=== PATIENT | female | born 1950 | race African-American/Black ===

== ENCOUNTER 2020-07-05 15:47 | Inpatient (IN) | payer OTHER ==
[~2020-07-05] VITALS: Ht 160 cm; Wt 47.7 kg
[2020-07-05 15:48] VITALS: BP 178/73
[2020-07-05 16:13] LABS: ABSOLUTE NEUTROPHILS 11.3 thou/uL (1.4-8.2); BASOPHILS 0.8 % (0.0-2.0); HEMATOCRIT 29.2 % (37.0-47.0); HEMOGLOBIN 9.2 gm/dL (12.0-15.0); LYMPHOCYTES 6.9 % (24.0-44.0); MCH 25.2 pg (26.0-34.0); MCHC 31.7 g/dL (28.0-37.0); MCV 79.5 fL (80.0-100.0); MONOCYTES 7.8 % (1.0-8.0); PLATELET COUNT 602 thou/uL (150-400); POLYS 84.5 % (36.0-66.0); RBC 3.67 mil/uL (4.20-5.00); RDW 14.8 % (10.5-14.5); WBC 13.4 thou/uL (4.0-11.0)
[2020-07-05 16:26] LABS: CALCIUM 9.2 mg/dL (8.5-10.1); CREATININE 0.9 mg/dL (0.6-1.0); INR 1.2; POTASSIUM 3.6 mmol/L (3.5-5.1); PROTIME 12.2 Seconds (9.3-11.4)
[2020-07-05 16:32] LABS: ALBUMIN 2.2 g/dL (3.4-5.0); DIRECT BILIRUBIN 0.1 mg/dL (<0.1-0.2); TOTAL BILIRUBIN 0.5 mg/dL (0.2-1.0); TOTAL PROTEIN 8.4 g/dL (6.4-8.2)
[2020-07-05] MEDS ORDERED: PLAVIX 75 MG TA75 MG PO (16:32)
[2020-07-05] MEDS ORDERED: ASA81BEC PO (16:32)
[2020-07-05] MEDS ORDERED: LOVENOX40 MG/0.4 SUBQ (16:32)
[2020-07-05] MEDS ORDERED: NEURONTIN100 MG PO (16:33)
[2020-07-05] MEDS ORDERED: LASIX 40 MG TAB40 MG PO (16:33)
--- NOTE | 2020-07-05 16:37 | NUR ---
SPOKE WITH NURSE AT [facility], SHE STATES SHE HAS BEEN AT THEIR FACILITY FOR APPROX 9 DAYS. WAS AT [facility] PRIOR. THE NURSE STATES PATIENT'S COGNITIVE FUNCTION IS TYPICAL FOR PATIENT. WHEN ASKED ABOUT EXTENT OF FOOT NECROSIS, THE NURSE STATES THEIR NURSE PRACTIONER HAS "BEEN KEEPING AN EYE ON IT" SINCE SHE ARRIVED. ANOTHER PROVIDER CAME TO SEE PATIENT TODAY AND THEN SENT HER TO ED
--- NOTE | 2020-07-05 18:12 | NUR ---
DR JAMES AT BEDSIDE EXAMINING PATIENT
[2020-07-06 00:14] VITALS: BP 153/68
--- NOTE | 2020-07-06 00:51 | NUR ---
ATTEMPTED TO CALL REPORT. THIS NURSE WAS TOLD THE NURSE THAT WOULD BE TAKING REPORT WILL CALL ME BACK
[2020-07-06 02:03] VITALS: BP 128/57
--- NOTE | 2020-07-06 04:40 | NUR ---
Arrived from ER around 0130. Unable to sign consent due to cognitive deficit. Able to state her name and that she is at the hospital. Admission information obtained from medical records . Able to reposition self though needs assistance at times due to pain on her legs. Tolerating room air well. Placed on enhanced precaution , afebrile. RETAIL GREETER stated ortho,wound and IR consults called already in the ER. Incontinent of bladder and had a smear bm. Unable to obtain urine sample ordered in ER. Bed alarm on for safety.
[2020-07-06 06:03] LABS: HEMATOCRIT 27.7 % (37.0-47.0); HEMOGLOBIN 8.6 gm/dL (12.0-15.0); MCH 25.1 pg (26.0-34.0); MCHC 31.2 g/dL (28.0-37.0); MCV 80.5 fL (80.0-100.0); RBC 3.44 mil/uL (4.20-5.00); RDW 14.6 % (10.5-14.5); WBC 12.1 thou/uL (4.0-11.0)
[2020-07-06 06:06] LABS: CALCIUM 8.8 mg/dL (8.5-10.1); CREATININE 0.8 mg/dL (0.6-1.0)
[2020-07-06 09:56] VITALS: BP 142/71
--- NOTE | 2020-07-06 11:37 | NUR ---
FAXED CLINICAL UPDATES AND COVID RESULTS TO [place]. WILL CALL TO CONFIRM THEY RECEIVED. P [phone]; FAX [phone]
[2020-07-06 13:32] VITALS: BP 165/72
[2020-07-06] MEDS ORDERED: FLONASE 0.05%50 MCG NASAL (14:35)
--- NOTE | 2020-07-06 14:50 | NUR ---
INITIAL ASSESSMENT: Received consult. DAMARIS reviewed chart and spoke with nursing and attending physician. 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 Pt placed in Enhanced Isolation due to positive COVID test. Pt is afebrile and not requiring O2. Pt is on IV abx. IR and ortho consulted. Pt to have right AKA tomorrow. Nursing has spoken with pt's sister/DPOA, Jolie, for consent for surgery. DPOA ppwk placed on pt's chart. DAMARIS has left two message for Matilda at [facility] to provide update. tool and production planner to fax clinical info to [facility] for review. DAMARIS is following to assist as needed with discharge planning.
--- NOTE | 2020-07-06 16:03 | NUR ---
CARE ASSUMED AT 0700, ALERT AND ORIENTED X1, DISORIENTED TO PLACE, SITUATION AND TIME. DENIES ANY NAUSEA AND VOMITTING. RIGHT LOWER LEG IS GANGRENE. DR. SHARLENE CRAWFORD ROUNDING AND STATED PT WILL NEEDED SURGERY SOON. CALLED PT DPOA, STEPH. FACETIME SET UP FOR PT AND HER SISTER. 1400 PT SISTER STEPH, BROUGHT DOWN PT DPOA PAPER WORK, CONSENT FOR SURGERY TOMORROW RECIEVED, SECOND RN, ESSIE WITNESS FOR CONSENT. PT KEPT NPO PER DR. LEE. WILL CONTINUE TO MONITOR.
[2020-07-06 16:07] VITALS: BP 173/70
[2020-07-06 19:50] VITALS: BP 156/64
[2020-07-07] VITALS (8 sets, daily range): BP systolic 137–185; BP diastolic 62–87
--- NOTE | 2020-07-07 05:02 | NUR ---
Care assumed 1900, Pt confused, oriented to self only. Vitals stable. Pt kept NPO for possible amputation of necrotic right leg. Pt is incontient, able to turn self in bed. Will continue With POC.
[2020-07-07 05:56] LABS: HEMATOCRIT 26.9 % (37.0-47.0); HEMOGLOBIN 8.3 gm/dL (12.0-15.0); MCH 25.8 pg (26.0-34.0); MCV 83.2 fL (80.0-100.0); RBC 3.23 mil/uL (4.20-5.00); RDW 14.9 % (10.5-14.5); WBC 17.5 thou/uL (4.0-11.0)
[2020-07-07 06:11] LABS: CALCIUM 8.8 mg/dL (8.5-10.1); CREATININE 0.7 mg/dL (0.6-1.0); POTASSIUM 3.9 mmol/L (3.5-5.1)
--- NOTE | 2020-07-07 10:21 | NUR ---
Received awake on bed. Pt confused, alert to self only; re-oriented from time to time. On MS, not on telemetry; no complains and signs of chest pain, crushing sensation. On room air. Vital signs stable. On nothing per orem, pt informed and aware; no nausea, no vomiting and no abdominal pain noted. Incontinent of bowel and bladder, checked frequently and changed as needed. With SL at R FA- intact and flushing well; on IV antibiotics. Falls bundle in place. Mouth care done. Pt scheduled for surgery today; verified with pre-op nurse Allie- pt scheduled at 1400 today- care team informed as well. Assisted in ADLs. Pt repositioned every 2 hours. No complains of pain made during assessment. Rt foot ischemic, no dressing in place. To continue monitoring patient.
--- NOTE | 2020-07-07 13:25 | NUR ---
DAMARIS reviewed chart and spoke with nursing and attending physician. Pt remains in Enhanced Isolation due to COVID. Pt has been febrile and is not requiring O2. Pt is on IV abx. Pt to have right BKA/AKA today. Surgery planned for this afternoon. DAMARIS spoke with ARY Kenney at [facility] to provide update. No weekend discharge planned. DAMARIS spoke with pt's sister/DPOA, Jolie Almendarez, via phone. Introduced role of SW. Lengthy discussion regarding discharge plan. Pt has been at [facility] for about two weeks for skilled rehab. Pt was at [facility] prior to going to [facility]. Pt had been living at home with family. Pt has caregivers that come in 8 hours/day and pt's niece provides additional care. Pt's sister states that family is going to discuss discharge plans. Pt's family has a virtual meeting with [facility] on Friday. SW provided alternate SNF options if needed. Pt's family has been able to Face Time with pt. DAMARIS is following to assist as needed with discharge planning.
[2020-07-08 00:01] VITALS: BP 153/80
--- NOTE | 2020-07-08 01:23 | NUR ---
ASSUMED CARE OF PATIENT AT 1900. PATIENT IN BED, RESTLESS AT TIMES. DENIES PAIN. CHRISTOPHER BANDAGE ON RIGHT LEG REMAINS C/D/I. NO S/S OF DISTRESS.
[2020-07-08 04:56] VITALS: BP 156/92
[2020-07-08 06:21] LABS: HEMOGLOBIN 7.5 gm/dL (12.0-15.0)
[2020-07-08 08:02] VITALS: BP 156/70
[2020-07-08 08:33] LABS: HEMATOCRIT 26.1 % (37.0-47.0); HEMOGLOBIN 8.1 gm/dL (12.0-15.0); MCH 24.9 pg (26.0-34.0); MCV 80.5 fL (80.0-100.0); RBC 3.24 mil/uL (4.20-5.00); WBC 13.6 thou/uL (4.0-11.0)
[2020-07-08 16:24] VITALS: BP 139/67
--- NOTE | 2020-07-08 18:38 | NUR ---
RN ASSUMED PT'S CARE AT 0700AM, PT KNOWS HER NAME AND DAY, BUT PT IS CONFUSED AT TIME, PT IS CONTINUING IV ABX, AND COVID ISOLATION, PT 'S VS ARE STABLE , PT REMOVED HER AKA SURGICAL DRESSING , RN APPLY NEW DRESSING, SURGICAL INCISION IS CDI ,PT 'S PAIN CAN CONTROL BY MEDICATION AND REPOSITION .RN HAS CALLED DR TO REPORT PT REFUSED EAT AND DRINKING , AND REPORT ABNORMAL US FOR LLE, NEW ORDER RECEIVED, PT HAS FACE TIME WITH HER FAMILY.
[2020-07-08 19:32] VITALS: BP 140/58
--- NOTE | 2020-07-08 21:50 | NUR ---
PT RESTING IN BED. IVF INTACT. PT HAS R AKA DRESSING DRY AND INTACT. PT DOES HAVE DISCOMFORT WITH REPOSITIONING IF SURGICAL SITE IS TOUCHED. PT REQUESTED SIPS OF WATER AND PROVIDED. COMPLIANT WITH HS MED, VS AND ASSESSMENT. BED ALARM ON.
[2020-07-09 02:56] VITALS: BP 151/66
[2020-07-09 05:19] LABS: HEMATOCRIT 23.9 % (37.0-47.0); HEMOGLOBIN 7.6 gm/dL (12.0-15.0); MCH 25.2 pg (26.0-34.0); MCHC 31.7 g/dL (28.0-37.0); MCV 79.5 fL (80.0-100.0); RBC 3.01 mil/uL (4.20-5.00); RDW 14.7 % (10.5-14.5); WBC 10.9 thou/uL (4.0-11.0)
[2020-07-09 05:35] LABS: CALCIUM 7.8 mg/dL (8.5-10.1); CREATININE 0.6 mg/dL (0.6-1.0); POTASSIUM 3.3 mmol/L (3.5-5.1)
[2020-07-09 08:43] VITALS: BP 149/81
[2020-07-09 16:06] VITALS: BP 144/82
--- NOTE | 2020-07-09 17:17 | NUR ---
RN ASSUMED PT'S CARE AT 0700AM, PT IS A&OX2 ( PERSON AND PLACE), PT IS CONFUSED AT TIME, RN HAS REPORTED DR ABOUT PT REFUSED TO EAT AND DRINK, PT IS CONTINUING D51/2 NS @ 80ML/HR, PT'S R AKA SURGICAL DRESSING IS CDI, PT DENIES SOB AND PAIN AT THIS TIME.
[2020-07-09 20:57] VITALS: BP 153/43
--- NOTE | 2020-07-09 23:55 | NUR ---
PT RESTLESS IN BED, FREQUENTLY REPOSITIONING, REMAING IN POSITION, PREFERS R SIDE. IVF INTACT. R AKA DRESSING AND L ANKLE DRESSING INTACT. REMAINS INCONTINENT, COMPLIANT WITH MEDS. BED ALARM ON.
[2020-07-10 03:24] VITALS: BP 155/75
[2020-07-10 06:38] LABS: HEMATOCRIT 27.2 % (37.0-47.0); HEMOGLOBIN 8.6 gm/dL (12.0-15.0); MCH 25.2 pg (26.0-34.0); MCHC 31.5 g/dL (28.0-37.0); MCV 80.1 fL (80.0-100.0); RBC 3.4 mil/uL (4.20-5.00); RDW 15.5 % (10.5-14.5); WBC 9.8 thou/uL (4.0-11.0)
[2020-07-10 06:57] LABS: CALCIUM 8.4 mg/dL (8.5-10.1); CREATININE 0.7 mg/dL (0.6-1.0); POTASSIUM 4.3 mmol/L (3.5-5.1)
[2020-07-10 07:47] VITALS: BP 173/71
--- NOTE | 2020-07-10 10:23 | NUR ---
Nutrition: Pt with little po intake x 5 days. Starting ensure TID as nsg reports pt drinking better than eating. Suggest consider change IVFs to Clinimix PPN to assist with nutrition til po improves.
--- NOTE | 2020-07-10 11:52 | NUR ---
DAMARIS reviewed chart and spoke with nursing and attending physician. Pt remains in Enhanced Isolation due to COVID. Pt had right AKA on Friday. PT/OT ordered today to evaluate pt. Discharge to SNF is anticipated for tomorrow. DAMARIS spoke with pt's sister/DPOA, Jolie, via phone to discuss discharge plan. Pt's family does not want pt to return to [facility]. Pt's sister requests referral to be sent to [facility]. Pt's sister states she has a virtual meeting with [facility] staff this afternoon and she will notify the facility of pt not returning. DAMARIS faxed referral to [facility]. Notified [facility] post acute liaison of new referral. Awaiting input from [facility]. DAMARIS is following to assist as needed with discharge planning.
--- NOTE | 2020-07-10 11:56 | O ---
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 PROCEDURE: Right below-knee amputation. SURGEON: Ciro Naranjo MD. ROOF FIXER: Karine Pete PA-C. INDICATIONS FOR ROOF FIXER: Throughout the case, extensive retraction and manipulation of the leg was required. This was afforded to me by my assistant statistician. ANESTHESIA: General. TOURNIQUET TIME: Approximately 20 minutes. COMPLICATIONS: None. SPECIMENS: Right lower extremity was sent for pathology. ESTIMATED BLOOD LOSS: 25 mL. CONDITION UPON LEAVING THE OPERATING ROOM: Stable. INDICATIONS FOR PROCEDURE: The patient is a 69-year-old female, who has had progressive dry gangrene of her right lower extremity that started out in her foot and progressed up to her midcalf. She had desiccation of the entire skin from the calf down to her foot including the foot. She had a vascular study showing to have no flow of arterial blood below her knee. After discussion with her DPOA and recommendation for above-knee amputation, DPOA was in agreement and we decided to proceed. DESCRIPTION OF PROCEDURE: Risks, benefits, alternatives, complications were discussed in detail with her DPOA, including but not limited to risk of [facility] [address] [place] [address] OPERATIVE REPORT Name: FRANCISCO MONZON Room #: 356-P [facility] IN M.R.#: [id number] Admission: 07/05/20 Attend Phys: Marcio Brown MD Discharge: Date of : 54 Report #: [id number] continued wound problems and need for higher level amputation. Informed consent was obtained from the DPOA. The right lower extremity was appropriately marked. IV Ancef was given for preoperative antibiotics. She was brought to the operating room and placed in the supine position on the operating room table. General anesthesia was induced without complication. Tourniquet was placed on the right thigh. Right lower extremity was prepped and draped in normal sterile fashion. Timeout was performed properly identifying the patient and procedure as well as the instrumentation. All in the operating room were in agreement. A fishmouth-type incision was then drawn on the skin at the distal third of the femur with the same surgical marking pen and a #10 blade was used to incise the skin. Bovie cautery was used to dissect through the musculature anteriorly down to the bone. A Cerrato elevator was used to clean the periosteum off the bone and a transverse cut was made in the femur. This was bevelled anteriorly. Dissection was continued with Bovie cautery through the posterior musculature and the amputation was completed. The sciatic nerve was identified, pulled tight and cut sharply with #10 blade and allowed to retract to prevent neuroma formation. The femoral artery was identified, dissected out, was quite atherosclerotic; however, this was tied off with 0 silk. The vein was tied off with a 0 silk also. The tourniquet was deflated and the wound was thoroughly irrigated with normal saline. Hemostasis was obtained with Bovie cautery. The posterior fascia was sewn to the anterior fascia with 0 Vicryl, skin was closed with 2-0 Vicryl, skin staple and a soft dressing was applied. The patient tolerated this procedure well and went to recovery room under care of anesthesia postoperatively. <ELECTRONICALLY SIGNED> By: Ciro Naranjo MD 07/10/20 1156 [id number] 1520 Ciro Naranjo MD /nt
[2020-07-10 15:36] VITALS: BP 156/87
--- NOTE | 2020-07-10 16:43 | NUR ---
PT ALERT AND ORIENTED IMES THREE WITH BLUNTED, SAD, FLAT AFFECT. BP ELEVATED SCHEDULED BP MEDICATIONS GIVEN. OTHER VSS. IVF INFUSING PER ORDER. PT DENIES PAIN. PT TOLERATES MEDS, BUT EATS VERY SMALL PORTIONS OF MEALS. DRESSING TO LEFT HEEL CHANGED. RIGHT SURGEY DRESSING C/D/I. WILL CONTINUE TO MONITOR.
[2020-07-10 19:45] VITALS: BP 152/58
[2020-07-11 03:24] VITALS: BP 156/65
--- NOTE | 2020-07-11 06:06 | NUR ---
PT ALERT AND ORIENTED X3. TURNS SIDE TO SIDE IN BED AND GETS IV OCCUDED FREQUENTLY. REPOSITIONED SEVERAL TIMES. I OFFERED HER PAIN PILLS SEVERAL TIMES TONIGHT BUT SHE REFUSED. REPOSITIONED FOR COMFORT. IVF INFUSING WITHOUT DIFFICULTY. BED DOWN. CALL LIGHT IN REACH. BED ALARM IS ON. ZGARD APPLIED TO BUTTOCKS. SHE IS INCONTINENT OF URINE IN LG AMTS.
[2020-07-11 07:35] VITALS: BP 143/66
[2020-07-11] MEDS ORDERED: ACETAMINOPHEN325 M1 PO (13:42)
[2020-07-11] MEDS ORDERED: BENICAR40 MG PO (13:42)
--- NOTE | 2020-07-11 14:25 | NUR ---
DISCHARGE NOTE: DAMARIS reviewed chart and spoke with nursing and attending physician. Pt remains in Enhanced Isolation due to COVID. Pt is medically stable for discharge to [facility] today. DAMARIS faxed finalized discharge orders/summary to the facility and confirmed info was received. DAMARIS arranged ambulance transportation for 1630 via [facility]. DAMARIS spoke with pt's sister/DPOA, Jolie, via phone to provide update. Jolie is aware and agreeable with discharge plan. Chart copy requested. Nursing to call report prior to discharge. DAMARIS updated [facility] post-acute liaison of transportation time. [id number] form faxed to facility. No additional SW needs identified at this time, but is available to assist should needs arise.
--- NOTE | 2020-07-11 19:47 | NUR ---
RN ASSUMED PT'S CARE AT 0700AM, PT IS A&OX2 ( PERSON AND PLACE), PT CAN FOLLOW COMMANDS, PT IS ON COVID ISOLATION, PT'S VS ARE STABLE, PT DENIES SON AND PAIN, PT'S R AKA SURICAL WOUNG DDRESSING HAS CHANGED, RN HAS TAKING PT'S WOUND PICTURES . RN RECEIVED OR TO DC PT TO SNF, RN HAS GIVING REPORTED, PT STILL NEEDS TO ENCOURAGE TO EAT AND DRINK. 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
--- NOTE | 2020-07-24 15:01 | HC ---
[facility] [address] CONSULTATION Name: FRANCISCO MONZON Room #: 356-P [facility] IN M.R.#: [id number] Admission: 07/05/20 Attend Phys: Marcio Brown MD Discharge: 07/11/20 Date of : 54 Report #: [id number] THIS REPORT FOR: cc: Mp Omer MD, Srinath MD Althoff,Anjel Stockton MD ~ DATE OF SERVICE: 07/06/2020 CHIEF COMPLAINT: Ischemic lower extremity. HISTORY OF PRESENT ILLNESS: This is a 69-year-old female patient who comes from [facility]. She has presented with pain and discoloration of her right lower extremity, and was admitted through the Emergency Department, was felt to have significant tissue necrosis that has encompassed the entirety of the lower leg and foot. Apparently, the discoloration started several weeks ago, the patient is not able to provide much information about herself unfortunately. PAST MEDICAL HISTORY: Positive for history of an undefined mental illness, history of alcohol abuse, hypertension, and history of tobacco use. FAMILY HISTORY: Unknown. SOCIAL HISTORY: Once again positive for alcohol and tobacco use, amount and duration are unknown. MEDICATIONS: Include Lovenox, Plavix, enteric coated aspirin, Lasix, and Neurontin. ALLERGIES: No known drug allergies. REVIEW OF SYSTEMS: Not able to be obtained due to the patient's mental status. PHYSICAL EXAMINATION: VITAL SIGNS: At this time include temperature 36.7, pulse 87, respiratory rate 16, blood pressure 173/70. GENERAL: This is a chronically ill-appearing female patient who appears to be in mild discomfort. She is disoriented and does not interact very well. HEENT: Head is normocephalic. NECK: Supple. LUNGS: Clear. HEART: Regular rhythm. ABDOMEN: Soft. EXTREMITIES: Right lower extremity demonstrates what appears to be progressive dry gangrene involving the right lower leg and encompassing the entirety of the foot. It is tender to palpation. There is no odor and there is really no [address] [address] CONSULTATION Name: FRANCISCO MONZON Room #: 356-[facility] IN M.R.#: [id number] Admission: 07/05/20 Attend Phys: Marcio Brown MD Discharge: 07/11/20 Date of : 54 Report #: [id number] drainage to speak of at this time. NEUROLOGIC: The patient opens her eyes. She does not interact, appears to move symmetrically. LABORATORY DATA: Sodium 135, potassium 3.0, chloride 101, CO2 22, BUN 18, creatinine 0.8, glucose of 95. Albumin 2.2. INR 1.2. White blood cell count 12.1 with a hemoglobin of 8.6. CLINICAL IMPRESSION: 1. Right lower extremity gangrene. 2. Severe peripheral arterial disease. 3. Undefined mental illness. 4. History of alcohol abuse. 5. History of tobacco use. RECOMMENDATIONS: At this point in time, the right lower extremity does not appear to be salvageable. I have discussed this case with the interventional radiologist, who does not feel that it would be necessary to intervene on the right leg due to the fact that she will require amputation. I agree with orthopedic consultation. I think we should seriously consider an above-knee amputation versus below-knee amputation based both on vascularity as well as it is unclear that she will ever be ambulatory and would be at risk for flexion contracture at the knee. We recommend PRAFO boots at this time, dry gauze dressings. I appreciate being asked to see her in consultation. <ELECTRONICALLY SIGNED> By: Anjel Koch MD 07/24/20 1501 0930 0947 Anjel Koch MD /nt
--- NOTE | 2020-08-01 10:11 | PATH ---
[facility] [address] [address] PATHOLOGY RPT PROCEDURE Name: FRANCISCO MONZON Room #: 356-P [facility] IN M.R.#: [id number] Admission: 07/05/20 Date of : 54 Discharge: 07/11/20 Report #: [id number] Path Case #: [id number] [facility] Accession Number: [id number] . 01 Material submitted: . leg - ABOVE KNEE AMPUTATION . 01 Clinician provided ICD-10: 173.89 . 01 Clinical history: . GANGRENE RIGHT FOOT COVID POSITIVE . 02 Diagnosis: Leg, right, above knee amputation: - Gangrenous necrosis and mummification of the foot. - Popliteal, anterior tibial and posterior tibial vessels showing complete luminal occlusion by thrombi and calcific atherosclerosis with no patent lumen. - Skin and soft tissue margin viable and unremarkable. - Bone margin grossly viable. (IUV/db; 07/14/2020) LBQ 07/14/2020 1556 Local . 02 Electronically signed: . Geri Cobian MD, Pathologist NPI- [id number] . 01 Gross description: . The specimen is received fresh in a red biohazard bag, labeled "Francisco Monzon, right above knee amputation". The specimen is placed in formalin for approximately 55 hours prior to sectioning. Received is a right omtuh-aep-kgfk amputation measuring 21.4 cm from heel to toe, 34.3 cm from heel to skin margin, and 40.2 cm from heel to femoral bone margin. The bone margin is blunt in appearance, consistent with transection, and appears grossly unremarkable. The skin and soft tissue margins appear grossly viable. The distal one third of the lower leg and entire foot are brown-black and mummified in appearance, with a moderate amount of skin slippage. All five toes are present. The remainder of the skin is light romero and grossly unremarkable. Sectioning through the popliteal artery reveals a moderate amount of calcification at the margin. Approximately 2 cm distal to the popliteal margin, there is minimal calcification identified. Sectioning through the anterior and posterior tibial vasculatures reveal patent lumens. The specimen is submitted representatively as follows: . [address] [address] PATHOLOGY RPT PROCEDURE Name: FRANCISCO MONZON Room #: 356-P DIS IN M.R.#: [id number] Admission: 07/05/20 Date of : 54 Discharge: 07/11/20 Report #: [id number] Path Case #: [id number] A1 skin and soft tissue margin A2 service liaison representative sections of skin to show mummification and grossly unremarkable areas A3 popliteal vasculatures, to include margin A4 anterior and posterior tibial vasculatures. . Gross photographs are taken. (CAA; 07/12/2020) QAC/QAC 07/12/2020 1710 Local . 02 Pathologist provided ICD-10: I96, I70.201 . 02 CPT . 001297 Specimen Comment: A duplicate report has been generated due to demographic updates. Performed at: [address], [place] [id number] MD Daniel Dumas MD Phone: [phone] Performed at: [address] [id number] MD Geri Cobian MD Phone: [phone]
[2020-09-13] MEDS ORDERED: ASA81BEC PO (15:12)
[2020-09-13] MEDS ORDERED: PROBIOTIC1 EAC1 PO (15:12)
[2020-09-13] MEDS ORDERED: NORCO5 PO (15:12)
[2020-09-13] MEDS ORDERED: PREVACID30 MG PO (15:12)
[2020-09-13] MEDS ORDERED: PLAVIX 75 MG TA75 MG PO (15:12)
[2020-09-13] MEDS ORDERED: HYDROCODON-ACE1 EAC7 PO (15:12)
[2020-09-13] MEDS ORDERED: NEURONTIN100 MG PO (15:12)
[2020-09-13] MEDS ORDERED: LOSARTAN POTAS100 MG PO (15:12)
[2020-09-13] MEDS ORDERED: FLONASE 0.05%50 MCG NASAL (15:12)
== END 2020-07-11 18:01 | DRG 853 ==
LOC: ER 15:47 → 3W 17:55 → EROBS 17:55 → 3W 07-06 01:16
PROVIDERS: Nurse Practitioner; Orthopaedic Surgery; ADMIT Hospitalist; ATTEND Hospitalist
PROC: 0Y6H0Z3 Detachment at Right Lower Leg, Low, Open Approach (ICD-10-PCS; principal; 2020-07-07)
DX: A41.89 Other specified sepsis (principal); U07.1 COVID-19; E43 Unspecified severe protein-calorie malnutrition; E87.1 Hypo-osmolality and hyponatremia; D62 Acute posthemorrhagic anemia; Z68.1 Body mass index [BMI] 19.9 or less, adult; I73.9 Peripheral vascular disease, unspecified; I99.8 Other disorder of circulatory system; F10.11 Alcohol abuse, in remission; I10 Essential (primary) hypertension; I77.1 Stricture of artery; D72.829 Elevated white blood cell count, unspecified; E87.6 Hypokalemia; L89.626 Pressure-induced deep tissue damage of left heel; G93.0 Cerebral cysts; Z79.899 Other long term (current) drug therapy; Z79.01 Long term (current) use of anticoagulants; Z79.82 Long term (current) use of aspirin
CPT/HCPCS: 10080; 50101; 50386; 51412; 53000; 53078; 56524; 56528; 57091; 57179; 62110; 62900

== ENCOUNTER 2020-07-17 12:04 | Inpatient (IN) | payer OTHER ==
[~2020-07-17] VITALS: Ht 160 cm; Wt 44.0 kg
--- NOTE | ~2020-07-17 | O ---
[facility] [place] [address] OPERATIVE REPORT Name: FRANCISCO MONZON Room #: 205-P ADM IN M.R.#: [id number] Admission: 07/17/20 Attend Phys: Joselito Townsend MD Discharge: Date of : 54 Report #: [id number] THIS REPORT FOR: cc: Adonay Perdomo James D. DO Kneidel, Matthew T. MD ~ DATE OF SERVICE: 07/24/2020 PREOPERATIVE DIAGNOSIS: Left leg gangrene. POSTOPERATIVE DIAGNOSIS: Left leg gangrene. PROCEDURE: Left kwwnx-uvs-xlnf amputation. SURGEON: Dr. Carlos Alberto Perez. HOUSE ADMIN: None. ANESTHESIA: General. ESTIMATED BLOOD LOSS: 50 mL. DRAINS: One Hemovac drain was placed. COMPLICATIONS: There were no complications. DESCRIPTION OF PROCEDURE: The patient brought to the operating room where she was placed under general anesthesia. Once under adequate general anesthesia, she was transferred to the operative table. The patient's left lower extremity was then prepped and draped in sterile manner. A fishmouth-type incision was made about the distal femur. This was taken directly down to the bone localizing and clamping the vessels with hemostats. The femoral vessels were then incised and the femur was then exposed with a Cerrato elevator. The femur was then transected with an oscillating saw. The femoral nerve was transected proximally in the leg with a 15 blade. The femur was bevelled anteriorly with an oscillating saw as well. Once the amputation was complete, the femoral vessels were suture ligated with 0 silk suture. The wound was irrigated copiously once again and closed with #1 Vicryl in the deep fascia, 2-0 Vicryl in subcutaneous tissues and esteban were used for the skin. The wounds were dressed with Xeroform, 4 x 4s, and sterile soft compressive dressing was placed. [facility] [address] [place] [address] OPERATIVE REPORT Name: FRANCISCO MONZON Room #: 205-P [facility] IN ..#: [id number] Admission: 07/17/20 Attend Phys: Joselito Townsend MD Discharge: Date of : 54 Report #: [id number] There were no complications from the procedure. The patient tolerated the procedure well and was taken to recovery room without incident. By: [id number] Carlos Alberto Perez MD /savita
[~2020-07-17 12:04] MED LIST: ACETAMINOPHEN325 M1 PO; ASA81BEC PO; BENICAR40 MG PO; FLONASE 0.05%50 MCG NASAL; LASIX 40 MG TAB40 MG PO; LOVENOX40 MG/0.4 SUBQ; NEURONTIN100 MG PO; PLAVIX 75 MG TA75 MG PO
[2020-07-17 12:05] VITALS: BP 141/54
[2020-07-17 12:53] LABS: ABSOLUTE NEUTROPHILS 11.8 thou/uL (1.4-8.2); BASOPHILS 0.9 % (0.0-2.0); HEMATOCRIT 22.9 % (37.0-47.0); HEMOGLOBIN 7.2 gm/dL (12.0-15.0); LYMPHOCYTES 9.3 % (24.0-44.0); MCH 24.4 pg (26.0-34.0); MCHC 31.4 g/dL (28.0-37.0); MCV 77.6 fL (80.0-100.0); MONOCYTES 6.5 % (1.0-8.0); PLATELET COUNT 619 thou/uL (150-400); POLYS 83.3 % (36.0-66.0); RBC 2.96 mil/uL (4.20-5.00); WBC 14.2 thou/uL (4.0-11.0)
[2020-07-17 13:02] LABS: ALBUMIN 2.1 g/dL (3.4-5.0); CALCIUM 8.2 mg/dL (8.5-10.1); CREATININE 1.2 mg/dL (0.6-1.0); DIRECT BILIRUBIN 0.1 mg/dL (<0.1-0.2); TOTAL BILIRUBIN 0.4 mg/dL (0.2-1.0)
[2020-07-17 13:05] LABS: POTASSIUM 2.9 mmol/L (3.5-5.1)
[2020-07-17 13:08] LABS: URINE BILIRUBIN NEGATIVE (Negative); URINE BLOOD 2+ (Negative); URINE COLOR YELLOW; URINE GLUCOSE-RANDOM* NEGATIVE (Negative); URINE KETONES NEGATIVE (Negative); URINE PROTEIN (DIPSTICK) NEGATIVE (Negative); URINE SPECIFIC GRAVITY 1.015 (1.005-1.035); URINE UROBILINOGEN 0.2 E.U./dl (0.2-1.0)
[2020-07-17 13:09] LABS: URINE CLARITY SL HAZY; URINE LEUKOCYTES-REFLEX 1+ (Negative); URINE NITRITE-REFLEX POSITIVE (Negative)
[2020-07-17 13:24] LABS: SQUAMOUS 4-10 Moderate /LPF (0-3); URINE RBC 3-10 Few /HPF (0-2); URINE WBC-REFLEX 6-15 Few /HPF (0-5)
[2020-07-17 13:25] LABS: BACTERIA-REFLEX >30 Many /HPF (None Seen); CASTS None Seen /LPF (None Seen); CRYSTALS None Seen /LPF (None Seen)
[2020-07-17 14:37] LABS: % SATURATION 11 % (20-39); IRON 13 ug/dL (50-170); TIBC 116 ug/dL (250-450)
[2020-07-17 15:51] VITALS: BP 143/57
[2020-07-17 16:30] VITALS: BP 140/61
[2020-07-17 20:01] VITALS: BP 126/65
[2020-07-18 04:28] VITALS: BP 180/81
[2020-07-18 05:36] LABS: HEMATOCRIT 20.2 % (37.0-47.0); HEMOGLOBIN 6.5 gm/dL (12.0-15.0); WBC 11.8 thou/uL (4.0-11.0)
[2020-07-18 05:38] LABS: MCH 25.2 pg (26.0-34.0); MCHC 32.4 g/dL (28.0-37.0); RBC 2.59 mil/uL (4.20-5.00); RDW 15.1 % (10.5-14.5)
[2020-07-18 05:47] LABS: CALCIUM 7.8 mg/dL (8.5-10.1); CREATININE 0.9 mg/dL (0.6-1.0)
[2020-07-18 05:56] LABS: POTASSIUM 2.5 mmol/L (3.5-5.1)
[2020-07-18 08:00] VITALS: BP 171/69
[2020-07-18 11:12] VITALS: BP 160/96; BP 175/69; BP 183/76; BP 185/82; BP 192/77
[2020-07-18 16:21] LABS: HEMATOCRIT 28.9 % (37.0-47.0)
[2020-07-18 16:22] LABS: HEMOGLOBIN 9.2 gm/dL (12.0-15.0)
[2020-07-18 16:32] LABS: ALBUMIN 1.9 g/dL (3.4-5.0); CALCIUM 7.8 mg/dL (8.5-10.1); CREATININE 0.9 mg/dL (0.6-1.0); TOTAL BILIRUBIN 0.6 mg/dL (0.2-1.0); TOTAL PROTEIN 6.9 g/dL (6.4-8.2)
[2020-07-18 16:35] LABS: POTASSIUM 3.7 mmol/L (3.5-5.1)
[2020-07-18 19:51] VITALS: BP 190/72
[2020-07-19 04:36] VITALS: BP 149/79
[2020-07-19 05:13] LABS: HEMATOCRIT 26.2 % (37.0-47.0); HEMOGLOBIN 8.6 gm/dL (12.0-15.0); MCH 25.9 pg (26.0-34.0); MCHC 32.6 g/dL (28.0-37.0); MCV 79.3 fL (80.0-100.0); RBC 3.31 mil/uL (4.20-5.00); RDW 15.5 % (10.5-14.5); WBC 16.3 thou/uL (4.0-11.0)
[2020-07-19 05:46] LABS: CALCIUM 8.2 mg/dL (8.5-10.1); CREATININE 0.9 mg/dL (0.6-1.0); MAGNESIUM 1.6 mg/dL (1.8-2.4)
[2020-07-19 07:20] VITALS: BP 143/85
[2020-07-19 09:35] VITALS: BP 131/7
[2020-07-19 19:17] VITALS: BP 178/94
[2020-07-20 05:32] LABS: HEMATOCRIT 26.7 % (37.0-47.0); HEMOGLOBIN 8.5 gm/dL (12.0-15.0); MCH 25.6 pg (26.0-34.0); MCV 79.8 fL (80.0-100.0); RBC 3.34 mil/uL (4.20-5.00); RDW 16.1 % (10.5-14.5)
[2020-07-20 06:10] LABS: CALCIUM 8.2 mg/dL (8.5-10.1); CREATININE 0.8 mg/dL (0.6-1.0); MAGNESIUM 1.4 mg/dL (1.8-2.4)
[2020-07-20 08:21] VITALS: BP 151/81
[2020-07-20 11:37] VITALS: BP 167/84
[2020-07-20 15:42] VITALS: BP 141/91
[2020-07-20 19:42] VITALS: BP 131/55
[2020-07-21 05:33] LABS: HEMATOCRIT 25.3 % (37.0-47.0); MCH 25.6 pg (26.0-34.0); MCHC 31.7 g/dL (28.0-37.0); MCV 80.8 fL (80.0-100.0); RBC 3.13 mil/uL (4.20-5.00); RDW 15.8 % (10.5-14.5); WBC 17.8 thou/uL (4.0-11.0)
[2020-07-21 05:47] LABS: CALCIUM 7.8 mg/dL (8.5-10.1); CREATININE 0.9 mg/dL (0.6-1.0); MAGNESIUM 2.1 mg/dL (1.8-2.4); POTASSIUM 3.7 mmol/L (3.5-5.1)
[2020-07-21 08:07] VITALS: BP 146/80
[2020-07-21 19:13] VITALS: BP 129/43
[2020-07-21 21:14] LABS: MAGNESIUM 1.8 mg/dL (1.8-2.4); POTASSIUM 4.1 mmol/L (3.5-5.1)
[2020-07-22 03:58] VITALS: BP 108/70
[2020-07-22 04:16] LABS: HEMATOCRIT 25.4 % (37.0-47.0); HEMOGLOBIN 7.9 gm/dL (12.0-15.0); MCH 25.2 pg (26.0-34.0); MCHC 31.1 g/dL (28.0-37.0); RBC 3.14 mil/uL (4.20-5.00); RDW 16.3 % (10.5-14.5); WBC 16.9 thou/uL (4.0-11.0)
[2020-07-22 04:24] LABS: CREATININE 0.9 mg/dL (0.6-1.0); MAGNESIUM 1.9 mg/dL (1.8-2.4); POTASSIUM 3.9 mmol/L (3.5-5.1)
[2020-07-22 15:22] VITALS: BP 132/51
[2020-07-22 20:08] VITALS: BP 159/65
[2020-07-23 04:16] VITALS: BP 163/66
[2020-07-23 07:40] VITALS: BP 152/67
[2020-07-23 10:56] LABS: HEMATOCRIT 25.4 % (37.0-47.0); HEMOGLOBIN 7.7 gm/dL (12.0-15.0); MCH 25.3 pg (26.0-34.0); MCHC 30.5 g/dL (28.0-37.0); MCV 82.9 fL (80.0-100.0); RBC 3.06 mil/uL (4.20-5.00); WBC 16.4 thou/uL (4.0-11.0)
[2020-07-23 11:06] LABS: CALCIUM 7.6 mg/dL (8.5-10.1); CREATININE 0.9 mg/dL (0.6-1.0); MAGNESIUM 1.7 mg/dL (1.8-2.4); POTASSIUM 3.4 mmol/L (3.5-5.1)
[2020-07-23 11:20] VITALS: BP 158/67
--- NOTE | 2020-07-23 13:33 | HC ---
[facility] [place] [place] [address] CONSULTATION Name: FRANCISCO MONZON Room #: 205-P ADM IN M.R.#: [id number] Admission: 07/17/20 Attend Phys: Joselito Townsend MD Discharge: Date of : 54 Report #: [id number] THIS REPORT FOR: cc: Adonay Perdomo James D. DO Geha, Daniel J. MD ~ DATE OF SERVICE: 07/22/2020 INFECTIOUS DISEASE CONSULTATION REASON FOR CONSULTATION: I was asked to evaluate concerning left foot gangrene. HISTORY OF PRESENT ILLNESS: The patient is a 70-year-old with history of hypertension, peripheral vascular disease, who was hospitalized 2 weeks ago for gangrene of her right lower extremity and required a right AKA. This has remained stable. She was at halfway facility and returns with generalized weakness and failure to thrive. She does have a feeding PEG tube in place. She has an indwelling Mendez catheter. She has adequate IV access. She has been anorexic and generally weak. Mental status has been poor. She underwent an angiogram and stenting procedure regarding her left lower extremity yesterday. She has significant amount of pain in her left foot and has remained curled in a position. REVIEW OF SYSTEMS: Denies any cough, sputum, nausea, vomiting or diarrhea. Other 14-point review is negative other than what has been described above. ALLERGIES: None known. MEDICATIONS: As noted on her AUG, which were reviewed, now including ceftriaxone. PAST MEDICAL HISTORY: Arthritis, hypertension, peripheral vascular disease, alcohol use, tobacco use, right AKA, cerebral cyst, atrial fibrillation, UTI. FAMILY HISTORY: Negative for tuberculosis. SOCIAL HISTORY: Smoker of cigarettes, no ongoing alcohol use. PHYSICAL EXAMINATION: VITAL SIGNS: Afebrile and hemodynamically stable. GENERAL: The patient was in the position. She would respond and was conversant, although very weak. SKIN: With sacral pressure wound. Unstageable. EXTREMITIES: Her right AKA incision with esteban in place well approximated with mild tenderness. Her left lower extremity was exquisitely tender, [facility] [address] [place] [address] CONSULTATION Name: FRANCISCO MONZON Room #: 205-P ADM IN M.R.#: [id number] Admission: 07/17/20 Attend Phys: Joselito Townsend MD Discharge: Date of : 54 Report #: [id number] erythematous. She had diffuse ischemic change throughout the foot and ankle up to the mid-calf region. There was some blistering and ecchymosis throughout her foot. Toes were cold. No palpable pulses in the foot. EYES: Without scleral icterus. MOUTH: Without mucositis. NECK: Supple. LUNGS: Clear. HEART: Regular, without murmur, gallop or rub. ABDOMEN: Soft, nontender, no hepatosplenomegaly or mass. Her PEG site was without erythema or drainage. MUSCULOSKELETAL: No CVA tenderness or spine tenderness. She was able to move all of her extremities, although was in the position. NEUROLOGIC: Cranial nerves intact. Mood was sedate, but conversant. Laboratory reviewed. Microbiology reviewed. Angiogram reviewed. CT of the pelvis reviewed. IMPRESSION: 1. A 70-year-old with significant peripheral vascular disease and left lower extremity ischemia with gangrene of her foot, status post angiogram and stenting procedure yesterday. 2. Malnutrition. 3. Sacral decubitus, unstageable. 4. Encephalopathy. 5. Recent COVID-19 infection, anemia, recent right ocpyg-irv-yqqy amputation. RECOMMENDATIONS: We will continue IV antibiotic therapy. We would have Orthopedic consultation for consideration of left lower extremity amputation. Hopefully, could do a mefgv-vgf-qgbn amputation given her recent arterial stenting procedures. Continue nutritional support and pain management. Offloading the sacrum as much as possible and follow serial laboratory. <ELECTRONICALLY SIGNED> By: Shiva Sahni MD 07/23/20 1333 1619 1855 Shiva Sahni MD /nt
[2020-07-23 15:23] VITALS: BP 163/81
[2020-07-23 20:00] VITALS: BP 131/56
[2020-07-24 04:10] VITALS: BP 148/55
--- NOTE | 2020-07-24 11:44 | HC ---
[facility] [place] [address] CONSULTATION Name: FRANCISCO MONZON Room #: 205-P ADM IN M.R.#: [id number] Admission: 07/17/20 Attend Phys: Joselito Townsend MD Discharge: Date of : 54 Report #: [id number] THIS REPORT FOR: cc: Adonay Perdomo,Sreekanth Ely MD ~ DATE OF SERVICE: 07/18/2020 WOUND CARE CONSULTATION PERSONAL PHYSICIAN: Adonay Perdomo. CHIEF COMPLAINT: Left lower extremity wounds and peripheral arterial disease. HISTORY OF PRESENT ILLNESS: This is a 69-year-old black female who we have cared for in the past for previous right lower extremity ulcer, which subsequently ended up in the right zqngk-rnp-ogki amputation on 07/07/2020. The patient was now admitted for poor oral intake and for possible PEG tube placement. Upon admission, the patient was noted to have significant deep tissue injury to her left heel and foot. The foot was cool to evaluation without palpable pulses. This has been a definite change from her evaluation approximately 2 weeks ago when she was in the hospital. The patient herself is essentially nonverbal, but does moan when we evaluate her left foot. The patient's right stump still has esteban intact. The patient was also noted to have an unstageable ulceration in her sacrococcygeal region on admission. Nursing staff deny any other associated ulcerations or wounds. PAST MEDICAL HISTORY: Significant for peripheral arterial disease, hypertension, tobacco use, alcohol use. Recent right pztdd-hzq-asof amputation. CURRENT MEDICATIONS: Multiple, I reviewed his medication list. DRUG ALLERGIES: None. SOCIAL HISTORY: The patient currently resides in a long-term care facility. FAMILY HISTORY AND REVIEW OF SYSTEMS: Unobtainable because of the patient's altered mental status. PHYSICAL EXAMINATION: VITAL SIGNS: Temperature 36.4, pulse 93, respirations 17, BP 151/81. GENERAL: This is an awake, but not necessarily alert black female who appears to be in at least moderate distress secondary to pain. HEENT: Normocephalic, atraumatic. Mucous membranes are dry. Pupils are round. Sclerae white. [facility] [address] [place] [address] CONSULTATION Name: FRANCISCO MONZON Room #: 205-P [facility] IN M.R.#: [id number] Admission: 07/17/20 Attend Phys: Joselito Townsend MD Discharge: Date of : 54 Report #: [id number] NECK: Without JVD. LUNGS: Clear. HEART: Regular. ABDOMEN: Soft, nontender. EXTREMITIES: On the sacrococcygeal region, a small unstageable decubitus ulcer, which is 100% slough covered. Periwound is mildly macerated, but no undermining or tunneling. Evaluation of right lower extremity reveals rwjwl-jbm-clev amputation with esteban still intact. It is somewhat macerated as well with drainage of serosanguineous fluid without significant odor. Evaluation of left lower extremity reveals significant deep tissue injury to the left heel and foot. Foot is cool to touch. No palpable pulses and exquisitely tender to palpation. There are no overt signs of cellulitis. NEUROLOGIC: Cranial nerves 2-12 are grossly intact. Motor and sensory grossly intact. LABORATORY DATA: White count 16.3, hemoglobin 8.6, BUN 9, creatinine 0.8. C-reactive protein 195.8, albumin 1.9. IMPRESSION: 1. Deep tissue injury to left heel, lateral foot, which is progressive over the past several weeks. 2. History of severe peripheral arterial disease. 3. Unstageable sacrococcygeal decubitus ulcer. 4. Recent right dechs-vvw-mtqh amputation. 5. Learning disability with altered mental status. 6. Hypertension. 7. Metabolic encephalopathy. 8. History of recent COVID-19 infection. 9. Severe protein-calorie malnutrition with albumin of 1.9. 10. History of tobacco abuse. 11. Generalized debility. PLAN: I have contacted Dr. Juvenal Guido to evaluate the patient for peripheral arterial disease and plan for angiogram of the left lower extremity. We will paint his left foot and heel with Betadine daily and p.r.n. We will use heel protectors at all times to protect for any further breakdown. We will start Dakin's wet to dry dressings to the sacral ulcer twice daily and p.r.n. We will put the patient on low air loss surface and I have her turned every 2 hours. On the right dzayd-gwp-wqks amputation site, we will use Xeroform, ABD, Kerlix and Ramiro daily. We will continue with IV antibiotics at this time per hospitalist. I agree with ordering a PEG tube given the patient's significant protein-calorie malnutrition. The patient will have PT and OT consulted to assist with [address] [address] CONSULTATION Name: FRANCISCO MONZON Room #: 205-P ADM IN M.R.#: [id number] Admission: 07/17/20 Attend Phys: Joselito Townsend MD Discharge: Date of : 54 Report #: [id number] strengthening as able. We will continue all other current medications. We will continue to follow the patient. <ELECTRONICALLY SIGNED> By: Sreekanth Tyler MD 07/24/20 1144 1322 1353 Sreekanth Tyler MD /nt
--- NOTE | 2020-07-24 12:09 | HC ---
[facility] [place] [address] CONSULTATION Name: FRANCISCO MONZON Room #: 205-P ADM IN M.R.#: [id number] Admission: 07/17/20 Attend Phys: Joselito Townsend MD Discharge: Date of : 54 Report #: [id number] THIS REPORT FOR: cc: Adonay Perdomo James D. DO Kneidel, Matthew T. MD ~ DATE OF SERVICE: 07/23/2020 CHIEF COMPLAINT: Left lower extremity gangrene. HISTORY OF PRESENT ILLNESS: This is a 70-year-old patient admitted due to sepsis. She had recently been admitted with gangrene to her right lower extremity and underwent kvrdg-ysa-ixme amputation on 07/07/2020. She apparently became septic and was admitted on 07/17/2020. PAST MEDICAL HISTORY: Significant for arthritis, mental illness, history of a cerebral cyst, atrial fibrillation, urinary tract infections, hypertension, history of the right pmcsp-vsi-lkkm amputation recently. She has also had angiograms and stenting of her lower extremities. She has sacral decubitus as well. PHYSICAL EXAMINATION: VITAL SIGNS: Notes a temperature of 37.6, pulse is 88, respiratory rate is 17. EXTREMITIES: Examination of the left lower extremity notes the left foot and leg is cold. She has a flexion contracture through her knee, which is considerable, only able to extend to negative 45 degrees. She has a flexion contracture at her hip as well. IMPRESSION: Left lower extremity dry gangrene. PLAN: At this point, we proceed with a left slemq-tjm-zwrn amputation. We will look to doing this tomorrow. <ELECTRONICALLY SIGNED> By: Carlos Alberto Perez MD 07/24/20 1209 0909 1128 Carlos Alberto Perez MD /nt
--- NOTE | 2020-07-24 15:07 | PATH ---
[facility] [address] [address] PATHOLOGY RPT PROCEDURE Name: FRANCISCO MONZON Room #: 205-P ADM IN M.R.#: [id number] Admission: 07/17/20 Date of : 54 Discharge: Report #: [id number] Path Case #: [id number] [facility] Accession Number: [id number] . 01 Material submitted: . stomach - GASTRIC BX R/O H. PYLORI . 01 Clinical history: . PEG PLACEMENT, NOT EATING GASTRIC ULCER, SUCCESSFUL PEG PLACEMENT . 02 Diagnosis: Gastric mucosa, gastric rule out H. pylori, endoscopic biopsy: - Helicobacter pylori-induced moderate active gastritis. - No definitive intestinal metaplasia or atrophy present. - Moderate Helicobacter pylori organisms present on the properly controlled immunohistochemical stain. (IUV:artificial foliage arranger; 07/24/2020) MBR 07/24/2020 1237 Local . 02 Electronically signed: . Geri Cobian MD, Pathologist NPI- [id number] . 01 Gross description: . The specimen is received in formalin, labeled "Francisco Monzon, gastric biopsy, R/O H. pylori". Received are three segments of pale romero soft tissue ranging in size from 0.1 to 0.4 cm in maximum dimensions. The specimen is submitted entirely in cassette A1. (CAA; 07/21/2020) QAC/QAC 07/21/2020 [facility] Local . 02 Pathologist provided ICD-10: K29.60, B96.81 . 02 CPT . 947628, A10165 Specimen Comment: A courtesy copy of this report has been sent to [phone] Specimen Comment: [phone], Specimen Comment: Report sent to ,DR FONG / DR CHIN Performed at: [address], [place] [id number] MD Daniel Dumas MD Phone: [phone] Performed at: 02 [place] [address] PATHOLOGY RPT PROCEDURE Name: FRANCISCO MONZON Room #: 205-P ADM IN M.R.#: [id number] Admission: 07/17/20 Date of : 54 Discharge: Report #: [id number] Path Case #: [id number] [address] [place], [place] [id number] MD Geri Cobian MD Phone: [phone]
[2020-07-24 15:34] VITALS: BP 128/65
[2020-07-24 19:00] VITALS: BP 112/59
[2020-07-24 20:10] LABS: CALCIUM 7.9 mg/dL (8.5-10.1); CREATININE 0.9 mg/dL (0.6-1.0); MAGNESIUM 2.1 mg/dL (1.8-2.4); POTASSIUM 4.3 mmol/L (3.5-5.1)
[2020-07-25 02:57] VITALS: BP 129/54
[2020-07-25 05:17] LABS: HEMATOCRIT 20.5 % (37.0-47.0); HEMOGLOBIN 6.5 gm/dL (12.0-15.0)
[2020-07-25 05:22] LABS: POTASSIUM 4.6 mmol/L (3.5-5.1)
[2020-07-25 12:27] VITALS: BP 97/44
[2020-07-25 15:04] VITALS: BP 111/55; BP 132/73
[2020-07-25 20:18] VITALS: BP 142/65
[2020-07-26 04:46] LABS: CALCIUM 7.7 mg/dL (8.5-10.1); CREATININE 0.8 mg/dL (0.6-1.0); MAGNESIUM 1.9 mg/dL (1.8-2.4); POTASSIUM 3.9 mmol/L (3.5-5.1)
[2020-07-26 04:54] VITALS: BP 139/59
[2020-07-26 04:54] LABS: HEMATOCRIT 26.9 % (37.0-47.0); MCH 26.7 pg (26.0-34.0); MCHC 32.4 g/dL (28.0-37.0); MCV 82.6 fL (80.0-100.0); RBC 3.25 mil/uL (4.20-5.00); RDW 17.8 % (10.5-14.5)
[2020-07-26 05:00] LABS: HEMOGLOBIN 8.7 gm/dL (12.0-15.0)
--- NOTE | 2020-07-26 08:07 | P ---
[facility] [place] [place] [address] PROCEDURE REPORT Name: FRANCISCO MONZON Room #: 205-P [facility] IN M.R.#: [id number] Admission: 07/17/20 Attend Phys: Joselito Townsend MD Discharge: Date of : 54 Report #: [id number] THIS REPORT FOR: cc: Adonay Perdomo James D. DO McElhinney, Christian C. MD ~ DATE OF SERVICE: 07/19/2020 PROCEDURE PERFORMED: Upper endoscopy with biopsies and PEG tube placement. HISTORY OF PRESENT ILLNESS: The patient is a 69-year-old female with malnutrition, failure to thrive. She has a history of dementia. She has had poor p.o. intake for several weeks at the half-way, had a recent right svtll-hng-uzjb amputation for gangrenous foot on 07/07/2020. Speech path evaluated the patient and recommended a pureed diet. She is not taking in enough calories. Therefore, the plan is to proceed with PEG tube placement for nutritional support. DESCRIPTION OF PROCEDURE: The risks and benefits of the procedure were explained to the patient's sister who is her durable power of greenhouse worker, those risks including, but not limited to, bleeding, perforation and the risk of sedation as well as infection. She understood these risks and gave informed consent. The patient is already on IV Rocephin on a daily basis. Sedation was given using propofol per anesthesia. Next, using a standard Olympus upper endoscope, the scope was placed in the patient's mouth and advanced under direct vision through the esophagus, stomach, and into the second portion of the duodenum. The esophagus was normal throughout. The GE junction was normal. Overall, the gastric mucosa was normal in the fundus and body; however, in the gastric antrum, several ulcerations were noted. Small 3-5 mm clean white-based ulcers noted; however, there was a large 2 cm clean white-based ulcer also noted. No evidence of bleeding. Biopsies were obtained to rule out H. pylori. The pylorus was normal and patent. The duodenal bulb, first and second portion were all normal. The scope was then brought back up into the patient's stomach and the stomach was fully insufflated with air. Good transillumination was noted through the anterior abdominal wall. At this point, the area was then marked on the anterior abdominal wall and the skin was cleaned with a chlorhexidine solution. Sterile drape was then put in place. Next, Xylocaine was used as a local anesthetic. Next, using a seeker needle, the needle was advanced through the anterior abdominal wall into the gastric lumen under direct vision without difficulty. The needle was then removed. Next, a 1 cm incision was made through the skin. Next, using a catheter needle, the needle was advanced through the midportion of the incision again into the gastric lumen under direct vision. There was noted to be a little bit of bleeding on the gastric lumen side. No evidence of bleeding on the skin, which caused a small hematoma near the opening. The needle was removed and the catheter remained in [facility] [address] [place] [address] PROCEDURE REPORT Name: FRANCISCO MONZON Room #: 205-P [facility] IN M.R.#: [id number] Admission: 07/17/20 Attend Phys: Joselito Townsend MD Discharge: Date of : 52 Report #: [id number] A blue guidewire was inserted through the catheter. This was grasped with a snare through the endoscope and then brought back up through the patient's mouth. Next, a 20-Bulgarian PEG tube was secured to the blue guidewire and, using a pull technique, was put into supine position without difficulty. The PEG tube was then pulled up against the anterior abdominal wall to hold pressure No further bleeding was noted. At this point, the scope was then withdrawn and the PEG tube was secured to the anterior abdominal wall. The procedure was terminated. The patient tolerated the procedure well. IMPRESSION: 1. Antral ulcers. No evidence of bleeding. Biopsies obtained to rule out H. pylori. 2. Otherwise, normal upper endoscopy. 3. Placement of PEG tube as described above. RECOMMENDATIONS: 1. Okay to start using PEG tube tomorrow. 2. Recommend daily PPI therapy. 3. Await biopsy results. Thank you for allowing me to participate in her care. <ELECTRONICALLY SIGNED> By: Cal Rubalcava MD 07/26/20 0807 1516 1814 Cal Rubalcava MD /nt
[2020-07-26 16:15] VITALS: BP 129/53
[2020-07-26 17:00] VITALS: BP 129/53
[2020-07-26 20:00] VITALS: BP 159/53
[2020-07-26 20:30] VITALS: BP 159/58
[2020-07-27 04:15] VITALS: BP 110/62
[2020-07-27 05:40] LABS: HEMATOCRIT 25.9 % (37.0-47.0); HEMOGLOBIN 8.4 gm/dL (12.0-15.0); MCH 26.9 pg (26.0-34.0); MCHC 32.6 g/dL (28.0-37.0); MCV 82.7 fL (80.0-100.0); RBC 3.14 mil/uL (4.20-5.00); RDW 18.5 % (10.5-14.5); WBC 16.4 thou/uL (4.0-11.0)
[2020-07-27 06:04] LABS: CALCIUM 7.3 mg/dL (8.5-10.1); CREATININE 0.8 mg/dL (0.6-1.0); MAGNESIUM 1.6 mg/dL (1.8-2.4); POTASSIUM 3.6 mmol/L (3.5-5.1)
[2020-07-27 08:30] VITALS: BP 157/67
[2020-07-27 12:16] VITALS: BP 144/87
[2020-07-27 16:17] VITALS: BP 148/67
--- NOTE | 2020-07-27 17:06 | PATH ---
[facility] [place] [address] [place] [address] PATHOLOGY RPT PROCEDURE Name: FRANCISCO MONZON Room #: 205-P ADM IN M.R.#: [id number] Admission: 07/17/20 Date of : 54 Discharge: Report #: [id number] Path Case #: [id number] [facility] Accession Number: [id number] . 01 Material submitted: . knee - LEFT ABOVE THE KNEE AMPUTATION. Modifiers: left . 01 Clinical history: . GANGRENE LEFT LEG . 02 Diagnosis: Leg "left above knee amputation": - Extensive gangrenous type of necrosis extending into the underlying fat. - The surgical resection margins appear viable. - The anterior and posterior tibial vessels reveal calcific atherosclerotic narrowing. (SHA:callum; 07/27/2020) QMS 07/27/2020 1518 Local . 02 Electronically signed: . Daniel Dumas MD, Pathologist NPI- [id number] . 01 Gross description: . The specimen is received fresh in a red biohazard bag, labeled "Francisco Monzon, left lenbn-smr-qwht amputation". Received is a left yxyci-tmu-uedi amputation measuring 23.8 cm from heel to toe, 37.2 cm from heel to skin margin, and 37.9 cm from heel to femoral bone margin. The skin and soft tissue margins are viable. The bone margin is blunt in appearance, consistent with transection, and appears grossly unremarkable. All five toes are present. On the medial aspect of the great toe, and overlying the medial aspect of the mid-foot and heel continuing onto the plantar surface, the skin is black and thick in appearance. On the dorsal aspect of the foot, there is a poorly circumscribed, irregular in contour and red-purple lesion measuring 6.7 x 1.3 cm. Sectioning through the popliteal vasculature reveals patent lumens. Sectioning through the posterior tibial vasculature reveals pinpoint lumens. The specimen is submitted representatively as follows: . A1 skin and soft tissue margin A2 loan servicing representative sections of black and thickened skin on medial aspect of great toe and mid-foot/heel A3 loan servicing representative section of lesion on dorsal aspect of foot A4 popliteal vasculature A5 anterior and posterior tibial vasculatures. (CAA; 07/26/2020) QAC/QAC 07/27/[address] [address] PATHOLOGY RPT PROCEDURE Name: FRANCISCO MONZON Room #: 205-P ADM IN M.R.#: [id number] Admission: 07/17/20 Date of : 54 Discharge: Report #: [id number] Path Case #: [id number] . 02 Pathologist provided ICD-10: I96 . 02 CPT . 946181 Specimen Comment: A courtesy copy of this report has been sent to [phone] Specimen Comment: Report sent to Performed at: [address], [place], [place] [id number] MD Daniel Dumas MD Phone: [phone] Performed at: [address] [id number] MD Geri Cobian MD Phone: [phone]
[2020-07-27 19:39] VITALS: BP 135/57
[2020-07-28 04:01] LABS: CALCIUM 7.7 mg/dL (8.5-10.1); CREATININE 0.7 mg/dL (0.6-1.0); MAGNESIUM 2.1 mg/dL (1.8-2.4); POTASSIUM 3.5 mmol/L (3.5-5.1)
[2020-07-28 04:26] LABS: HEMATOCRIT 26.4 % (37.0-47.0); HEMOGLOBIN 8.5 gm/dL (12.0-15.0); MCHC 32.1 g/dL (28.0-37.0); MCV 84.1 fL (80.0-100.0); RBC 3.14 mil/uL (4.20-5.00); RDW 18.7 % (10.5-14.5); WBC 16.4 thou/uL (4.0-11.0)
[2020-07-28 04:30] VITALS: BP 144/79
[2020-07-28 08:12] VITALS: BP 133/46
[2020-07-28] MEDS ORDERED: CLARITHROM250 MG/5 M PER TUBE (10:08)
[2020-07-28] MEDS ORDERED: FIRVANQ50 MG/1 ML PO (10:09)
[2020-07-28] MEDS ORDERED: AMOXICILLI250 MG/51 PER TUBE (10:09)
[2020-07-28] MEDS ORDERED: OMEPRAZOLE 20 M20 M1 PER TUBE (10:11)
[2020-07-28 12:01] VITALS: BP 157/67
== END 2020-07-28 18:16 | DRG 853 ==
LOC: ER 12:04 → 4W 15:20 → EROBS 15:20 → 4W 16:54 → 2N 07-21 17:46
PROVIDERS: Internal Medicine; Nurse Practitioner; Nurse Practitioner Family; Orthopaedic Surgery Foot and Ankle Surgery; ADMIT Hospitalist; ATTEND Hospitalist
PROC: 30233N1 Transfusion of Nonautologous Red Blood Cells into Peripheral Vein, Percutaneous Approach (ICD-10-PCS; principal; 2020-07-18)
PROC: 0DH68UZ Insertion of Feeding Device into Stomach, Via Natural or Artificial Opening Endoscopic (ICD-10-PCS; 2020-07-19)
PROC: 047L3DZ Dilation of Left Femoral Artery with Intraluminal Device, Percutaneous Approach (ICD-10-PCS; 2020-07-21)
PROC: B4181ZZ Fluoroscopy of Bilateral Renal Arteries using Low Osmolar Contrast (ICD-10-PCS; 2020-07-21)
PROC: 047J3D1 Dilation of Left External Iliac Artery with Intraluminal Device, using Drug-Coated Balloon, Percutaneous Approach (ICD-10-PCS; 2020-07-21)
PROC: B41D1ZZ Fluoroscopy of Aorta and Bilateral Lower Extremity Arteries using Low Osmolar Contrast (ICD-10-PCS; 2020-07-21)
PROC: 04CL3ZZ Extirpation of Matter from Left Femoral Artery, Percutaneous Approach (ICD-10-PCS; 2020-07-21)
PROC: 0DB68ZX Excision of Stomach, Via Natural or Artificial Opening Endoscopic, Diagnostic (ICD-10-PCS; 2020-07-21)
PROC: 0Y6D0Z1 Detachment at Left Upper Leg, High, Open Approach (ICD-10-PCS; 2020-07-24)
DX: A41.9 Sepsis, unspecified organism (principal); L89.153 Pressure ulcer of sacral region, stage 3; E43 Unspecified severe protein-calorie malnutrition; G92 Toxic encephalopathy; U07.1 COVID-19; N39.0 Urinary tract infection, site not specified; I96 Gangrene, not elsewhere classified; E87.0 Hyperosmolality and hypernatremia; A04.72 Enterocolitis due to Clostridium difficile, not specified as recurrent; Z68.1 Body mass index [BMI] 19.9 or less, adult; M19.90 Unspecified osteoarthritis, unspecified site; I48.91 Unspecified atrial fibrillation; I10 Essential (primary) hypertension; R62.7 Adult failure to thrive; E87.6 Hypokalemia; R53.81 Other malaise; S90.32XA Contusion of left foot, initial encounter; K25.9 Gastric ulcer, unspecified as acute or chronic, without hemorrhage or perforation; E78.5 Hyperlipidemia, unspecified; E83.42 Hypomagnesemia; D47.3 Essential (hemorrhagic) thrombocythemia; G54.7 Phantom limb syndrome without pain; M24.562 Contracture, left knee; F32.9 Major depressive disorder, single episode, unspecified; D50.9 Iron deficiency anemia, unspecified; Z89.611 Acquired absence of right leg above knee; Z86.16 Personal history of COVID-19; Z87.891 Personal history of nicotine dependence; Z47.89 Encounter for other orthopedic aftercare; Z95.820 Peripheral vascular angioplasty status with implants and grafts; X58.XXXA Exposure to other specified factors, initial encounter; Y93.89 Activity, other specified; Y92.89 Other specified places as the place of occurrence of the external cause; Y99.8 Other external cause status
CPT/HCPCS: 10045; 10081; 10797; 50010; 50101; 50386; 51412; 53000; 56524; 56525; 57091; 62110; 62900; 70005

== ENCOUNTER 2020-09-01 12:06 | Inpatient (IN) | payer OTHER ==
[~2020-09-01] VITALS: Ht 160 cm; Wt 42.1 kg
[~2020-09-01 12:06] MED LIST changes: +AMOXICILLI250 MG/51 PER TUBE; +CLARITHROM250 MG/5 M PER TUBE; +FIRVANQ50 MG/1 ML PO; +OMEPRAZOLE 20 M20 M1 PER TUBE
[2020-09-01 12:08] VITALS: BP 129/46
[2020-09-01 13:34] LABS: ABSOLUTE NEUTROPHILS 6.4 thou/uL (1.4-8.2); BASOPHILS 1.2 % (0.0-2.0); EOSINOPHILS 1.9 % (0.0-3.0); HEMATOCRIT 30.2 % (37.0-47.0); HEMOGLOBIN 9.6 gm/dL (12.0-15.0); LYMPHOCYTES 17.5 % (24.0-44.0); MCH 26.1 pg (26.0-34.0); MCHC 31.7 g/dL (28.0-37.0); MCV 82.5 fL (80.0-100.0); MONOCYTES 6.6 % (1.0-8.0); PLATELET COUNT 474 thou/uL (150-400); POLYS 72.8 % (36.0-66.0); RBC 3.67 mil/uL (4.20-5.00); RDW 18.4 % (10.5-14.5); WBC 8.8 thou/uL (4.0-11.0)
[2020-09-01 13:47] LABS: CALCIUM 9.2 mg/dL (8.5-10.1); POTASSIUM 4.3 mmol/L (3.5-5.1)
[2020-09-01 13:53] LABS: ALBUMIN 2.9 g/dL (3.4-5.0); TOTAL BILIRUBIN 0.2 mg/dL (0.2-1.0); TOTAL PROTEIN 8.4 g/dL (6.4-8.2)
[2020-09-01] MEDS ORDERED: ENOXAPARIN30 MG/0.3 SUBQ (14:29)
[2020-09-01 14:30] LABS: ANISOCYTOSIS 1+
[2020-09-01] MEDS ORDERED: LOSARTAN POTAS100 MG PO (14:32)
[2020-09-01] MEDS ORDERED: PREVACID30 MG PO (14:33)
[2020-09-01] MEDS ORDERED: PROBIOTIC1 EAC1 PO (14:35)
[2020-09-01 15:46] LABS: FOLIC ACID 10.6 ng/mL (8.6-58.9)
[2020-09-01 16:05] VITALS: BP 120/37
[2020-09-01 16:47] VITALS: BP 134/78
[2020-09-01 18:27] VITALS: BP 142/63
[2020-09-01 20:14] VITALS: BP 131/60
--- NOTE | 2020-09-01 20:17 | NUR ---
PT ARRIVED TO FLOOR FROM ED AROUND 1730 PER CART ACCOMPANIED BY EMILEE. ADMISSION HX,ASSESSMENT AND CAREPLAN COMPLETED.ROJELIO APPLIED TO RT STUMP. RECEIVED CALL FROM DR MOMIN ABOUT PT GOING FOR SURGERY IN AM.NO ORDER NOTED BUT WILL KEEP PT NPO AFTER MN.REPORT OFF TO YONNY CALLE.
--- NOTE | 2020-09-02 04:17 | NUR ---
ASSUMED PT CARE AT 1900.PT WITH AN OPEN WOUND ON HER R KNEE FROM PREVIOUS SURGERY.WOUND CLEANED WITH DRSG CHANGE,PT MAURICIO WELL.JOSIAH ON HER R KNEE INTACT.PT NPO SINCE IA FOR SURGERY IN THE AM.CALL LIGHT WITHIN REACH.
[2020-09-02 06:21] LABS: ABSOLUTE NEUTROPHILS 6.2 thou/uL (1.4-8.2); BASOPHILS 0.6 % (0.0-2.0); EOSINOPHILS 3.3 % (0.0-3.0); HEMATOCRIT 27.3 % (37.0-47.0); HEMOGLOBIN 8.8 gm/dL (12.0-15.0); LYMPHOCYTES 16.3 % (24.0-44.0); MCH 26.4 pg (26.0-34.0); MCHC 32.2 g/dL (28.0-37.0); MCV 82.1 fL (80.0-100.0); MONOCYTES 8.1 % (1.0-8.0); PLATELET COUNT 416 thou/uL (150-400); POLYS 71.7 % (36.0-66.0); RBC 3.33 mil/uL (4.20-5.00); RDW 18.7 % (10.5-14.5); WBC 8.6 thou/uL (4.0-11.0)
[2020-09-02 06:37] LABS: CALCIUM 9.1 mg/dL (8.5-10.1); CREATININE 0.9 mg/dL (0.6-1.0); MAGNESIUM 1.8 mg/dL (1.8-2.4); POTASSIUM 3.8 mmol/L (3.5-5.1)
--- NOTE | 2020-09-02 08:00 | NUR ---
PT ASSESSED AT START OF SHIFT. WENT FOR STUMP REVISION AT 0815 AND RETURNED TO ROOM AT 1045. PT ALERT BUT CONFUSED AND REFUSED LAB TO DRAW HER BLOOD. PICING AT HER DSNG AND TOOK DOWN TAPE HOLDING HEMOVAC THAT WAS TAPPED TO STUMP. DRAIN INTACK AND DRAINING SM AMT OF BLOODY DRAINAGE. TAKING SOME FLUIDS BUT NOT WANTING ANYTHING TO EAT-DENIED NAUSEA. NO C/O PAIN. STUMP CONTRACTED STRAIGHT UP. DSNG DRY AND INTACT. PT DISLODGED HER IV OUT OF ARM. DID TAKE HER MEDS WHOLE W/ WATER. MONITORING PT CLOSELY.
[2020-09-02 08:55] VITALS: BP 148/72
[2020-09-02 11:02] VITALS: BP 148/65
[2020-09-02 15:46] VITALS: BP 138/88
[2020-09-02 19:21] LABS: ANION GAP 7 mmol/L (7-16); BUN 17 mg/dL (7-18); CALCIUM 8.9 mg/dL (8.5-10.1); CHLORIDE 101 mmol/L (98-107); CO2 28 mmol/L (21-32); GLUCOSE 128 mg/dL (74-106); MAGNESIUM 1.7 mg/dL (1.8-2.4); SODIUM 136 mmol/L (136-145); TROPONIN-I <0.06 ng/mL (<0.06)
--- NOTE | 2020-09-03 10:35 | HC ---
[facility] [place] [address] [place] [address] CONSULTATION Name: FRANCISCO MONZON Room #: 444-P ADM IN M.R.#: [id number] Admission: 09/01/20 Attend Phys: Joselito Townsend MD Discharge: Date of : 54 Report #: [id number] THIS REPORT FOR: cc: Sanjay Sahni MD, Christopher B. MD Jetmore, Allen B. MD ~ DATE OF SERVICE: 09/02/2020 WOUND CARE CONSULTATION NOTE REASON FOR CONSULTATION: Nonhealing surgical wound of right leg, status post right above-knee amputation. The patient was taken to surgery today for revision. HISTORY OF PRESENT ILLNESS: The patient is a 70-year-old woman with a history of tobaccoism and severe peripheral vascular disease, who had undergone right above-knee amputation for gangrene of the right lower extremity. Her surgeon is Dr. Perez. The patient suffered dehiscence of her right above-knee amputation wound with exposed femur. She was taken back to surgery today for revision and coverage of the right above-knee amputation stump with an additional section of femur amputated. Wound care is consulted for wound aftercare. PAST MEDICAL HISTORY: Alcohol use, tobaccoism, anemia, protein-calorie malnutrition with failure to thrive, history of severe peripheral vascular disease with gangrene of the lower extremities, urinary tract infection, history of COVID-19 positive, atrial fibrillation, arthritis, hypertension. PHYSICAL EXAMINATION: GENERAL: Shows a thin elderly woman with some mental confusion. PAST SURGICAL HISTORY: Above-knee amputation on 07/07/2020. PHYSICAL EXAMINATION: GENERAL: Shows a thin elderly woman with some mental confusion. She appears malnourished. HEENT: Mucous membranes are moist. She ____. ABDOMEN: Soft. EXTREMITIES: Shows status post left leg amputation. Examination of the right leg shows above-knee amputation with fresh surgical dressing. There is Hemovac drain with dark blood. Dressing is not saturated. IMPRESSION: 1. Severe peripheral vascular disease with a history of gangrene of right lower extremity requiring above-knee amputation. [address] [address] CONSULTATION Name: FRANCISCO MONZON Room #: 444-P [facility] IN M.R.#: [id number] Admission: 09/01/20 Attend Phys: Joselito Townsend MD Discharge: Date of : 54 Report #: [id number] 2. Complications of amputation stump with wound dehiscence and exposed femur requiring wound revision of above-knee amputation site. 3. Protein-calorie malnutrition. 4. Tobaccoism. 5. Recent urinary tract infection. 6. History of recent Clostridium difficile. 7. COVID-19 positive. PLAN: We will leave the dressing on today to be changed on Friday, following along with OrthopedicsDr. . <ELECTRONICALLY SIGNED> By: Herrera Rick MD 09/03/20 1035 1326 1403 Herrera Rick MD /savita
--- NOTE | 2020-09-03 18:30 | NUR ---
PT ASSESSED AT START OF SHIFT. NOT PULLING AT TUBES AND DRESSINGS LIKE YESTERDAY. TYLENOL GIVEN FOR PAIN. APPETITE POOR. TAKES SIPS LIQUIDS WHEN OFFERED. DIFFICULTY TALKING PT INTO TAKING HER MEDS MOST OF THE TIME. SISTER HERE THIS AFTERNOON FOR VISIT. RT STUMP DSNG DRY AND INTACK. HEMOVAC BLOODY DRAINAGE DIMINISHED.
[2020-09-03 19:18] VITALS: BP 109/44
[2020-09-04 04:06] VITALS: BP 119/62
--- NOTE | 2020-09-04 06:13 | NUR ---
PT C/O PAIN ON HER R STUMP.MANAGED WITH MED.POST OP DRSG STILL INTACT.PT REPOSITIONED PER HER REQUEST.HEMOVAC IN PLACE MIN DRAINAGE NOTED.JORDAN CATH IN PLACE WITH YELLOW URINE NOTED IN THE BAG.PT HAS A PEG TUBE,NOT IN USE AT TIME. IV ABX ORDERED.
--- NOTE | 2020-09-04 07:22 | EKG ---
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
[2020-09-04 07:25] VITALS: BP 116/56
--- NOTE | 2020-09-04 16:05 | NUR ---
ASSESSMENT: CM REVIEWED CHART. PT WAS ADMITTED AND HAD REVISION OF RIGHT AKA. PT ALSO HAS A HX OF BKA. [facility] WHERE [facility] FROM [facility]. PT HAS PAST HX OF COVID 19. MARISELA SPOKE WITH PATIENTS CAMRON SAWYER [phone]. SHE REPORTS THAT THEY ARE NOT WANTING PATIENT TO RETURN TO SNF INSTEAD THEY ARE WANTING HER TO RETURN TO HOME WHERE SHE WILL LIVE WITH HER NIECE RIGOBERTO WHO CAN BE THERE WITH HER 06/01. SHE REPORTS THAT PT HAS 5 SISTERS AND 4 NIECES AND MANY OF THEM HAVE WORKED IN NURSING HOMES AND THEY PREFER TO TAKE CARE OF PATIENT AT HOME BY THEMSELVES. SHE REPORTS THEY JUST RECENTLY BOUGHT A HANDICAP ACCESSIBLE HOME THAT SHE AND NIECE WILL LIVE IN AT [address] [facility] [address]. PT HAS A WHEELCHAIR AT HOME THAT WAS PRIVATELY PURCHASED BUT SHE IS REQUESTING TO GET ONE THROUGH INSURANCE THAT IS NOT A LARGE ONE LIKE THEY HAVE. SHE HAS NO PRERENCE OF PROVIDER. STEPH REPORTS THAT PT HAS A HOSPITAL BED AT HOME BUT THEY ARE REQUESTING A TRAPEZE SO SHE CAN HAVE ASSISTANCE WITH MOVING IN BED. STEPH REPORTS THEY RECEIVED THE HOSPITAL BED THROUGH [facility]. CM REACHED OUT TO [facility] [phone] WHO REPORTS THEY JUST NEED AN ORDER AND PROGRESS NOTE FAXED TO THEM AT [phone]. CM NOTIFIED ATTENDING. CM SPOKE WITH [facility] WHO REPORTS [facility] WILL HAVE TO SUPPLY TRAPEZE SINCE THEY GOT THE BED THROUGH THEM BUT SHE CAN SUPPLY PATIENT WITH A WHEELCHAIR. AWAITING SCRIPT FOR WHEELCHAIR AT THIS TIME. MARISELA ALSO SPOKE WITH MATERIAL SCHEDULER PT HAS A PEG AND POSSIBLE NEED TO TUBE FEEDS. PATIENTS CAMRON/STEPH STATES SHE DOES NOT ANTICIPATE PT WILL NEED TUBE FEEDS AT HOME BUT IF SO HAVE NO PREFERENCE OF PROVIDER. CM NOTIFIED LIASON AT [facility] EM[facility]Y [facility]PART[facility] AND CM WILL CONTINUE TO FOLLOW. PT HAS BEEN TO MULTIPLE SNFS IN THE PAST INCLUDING [facility], AND [facility] AND [facility] WANTS PT TO RETURN HOME. ATTENDING IS AWARE OF PLAN AND THEM NOT WANTING TO PURSUE SNF. FAMILY REQUESTING HH AT DISCHARGE AND HAVE NO PREFERENCE OF HH COMPANY. REFERRAL SENT TO [facility] AND NOTIFIED OF PTS ADDRESS AND THEY REPORT THEY CAN ACCEPT HER AT DISCHARGE. AWAITING PLANS FOR IV ANBX OR IF PT WILL BE ABLE TO TRANSITION OFF. CM WILL CONTINUE TO FOLLOW TO ASSIST NEEDED.
[2020-09-04 16:15] VITALS: BP 124/53
--- NOTE | 2020-09-04 16:45 | NUR ---
ASSUMED PT CARE THIS AM. PT IS ALERT AND CONFUSED.PT HAS IV SITE ON L FA AND PEG TUBE. PT HAS JORDAN AND HEMOVAC WAS PULLED THIS AM. PT HAS BILATERAL AKA AND HAD SURGERY YESTERDAY. CALLED AND INFORMED DR RAI THAT PT BEEN NPO SINCE 09/02. SPEECH EVALUATION CONSULT AND TUBE FEEDING ORDERED. TUBE FEEDING STARTED AT 1430. ACCHUCHECK Q6H. PT SISTER (DPOA) CALLED THIS AM THAT WANTED TO DISCHARGE TO HOME INSTEAD TO IGNITE. INFORM PRINTED FORMS PROOFREADER. PT ON THE BED, BED ON THE LOWEST POSITION, SIDE RAILS UP, CALL LIGHT WITHIN REACH. WILL CONTINUE TO MONITOR PT. FOLLOW POC.
[2020-09-04 19:17] VITALS: BP 121/48
--- NOTE | 2020-09-05 02:51 | NUR ---
ASSUMED PT CARE AT 1900.PT IS ON JEVITY AT 20ML/HR WAS INCREASED TO 25ML AT SHIFT CHANGE.PT MAURICIO IT WELL.ACCUE CHECK Q6.JULIAN CATH TO BRYAN TO HER R TUMP C/D/I.PT PREFERS HER R SIDE,GOES BACK TO THAT POSITION IMMEDIATELY AFTER REPOSITIONING.CALL LIGHT WITHIN REACH.
[2020-09-05 03:56] VITALS: BP 103/48
[2020-09-05 07:20] VITALS: BP 117/38
--- NOTE | 2020-09-05 14:41 | NUR ---
ASSUMED PT CARE THIS AM. PT IS AWAKE AND CONFUSED. PT HAS IV SITE L FA AND PEG TUBE. PT HAS TUBE FEEDING & JEVITY @ 35ML RIGHT NOW. PT HAS BILATERAL AKA. CHANGED WOUND WITH NS, XEROFORM, ABD, KERLIX AND CHRISTOPHER. PT REFUSED TO TAKE ACCUCHECK THIS AFTERNOON AT 12 AND WON'T INSIST TO PUNCTURE HER FINGER TO CHECK BG. PT HAS JORDAN. GIVEN PAIN MEDS THIS AM. PT ON THE BED SLEEPING, SIDE RAILS UP, CALL LIGHT WITHIN REACH. WILL CONTINUE TO MONITOR PT. FOLLOW POC.
--- NOTE | 2020-09-05 15:26 | NUR ---
on-going assessment: MARISELA REVIEWED CHART. PT REMAINS ON IV NABX AND IS GETTING WOUND CARE. PT IS ON TF, SPEECH EVAL ORDERED. PT CURRENTLY REMAINS ON TF. CM PROVIDED [facility] WITH SCRIPT FOR WHEELCHAIR AND FAXED DOCUMENTATION OF THE NEED FOR IT AND SHE REPORT WE NEED TO CONTACT THE MAIN OFFICE WHEN WE WANT THE WHEELCHAIR DELIVERED. AWAITING SCRIPT FOR TRAPEZE SO IT CAN BE FAXED TO [facility]. MARISELA SPOKE WITH PTS CAMRON/STEPH TO UPDATE AND SHE REPORTS THEY ARE WANTING PT TO DISCHARGE RAIN. MARISELA EXPLAINED SHE IS STILL ON IV ANBX, GETTING WOUND CARE, AND GETTING TF. SHE IS REQUESTING TO TALK WITH PHYSICIAN. CM NOTIFIED PHYSICIAN AND SHE REPORTS SHE WILL CONTACT STEPH AFTER 4PM. MARISELA PROVIDED ATTENDING WITH HER CONTACT NUMBER.
[2020-09-05 20:06] VITALS: BP 133/47
--- NOTE | 2020-09-06 03:45 | NUR ---
PT OBSRERVED LEANING TOWARDS HER R SIDE AT SHIFT CHANGE.PT WAS LATER REPOSITIONED A COUPLE OF TIMES BUT SHE GOES BACK TO LEANING ON HER R SIDE.REGINAG TO HER R STUMP C/D/I.CLINDAMYCIN DC'D PT NOW ON VANCO.HANNAH NOTED FOR PT TO GET A PICC LINE LATER IN THE DAY.CALL LIGHT WITHIN REACH.
[2020-09-06 04:27] VITALS: BP 123/32
[2020-09-06 06:05] LABS: HEMATOCRIT 24.6 % (37.0-47.0); HEMOGLOBIN 7.9 gm/dL (12.0-15.0); MCH 26.5 pg (26.0-34.0); MCHC 32.3 g/dL (28.0-37.0); MCV 82.1 fL (80.0-100.0); RBC 2.99 mil/uL (4.20-5.00); RDW 18.1 % (10.5-14.5); WBC 8.4 thou/uL (4.0-11.0)
[2020-09-06 06:17] LABS: CALCIUM 8.3 mg/dL (8.5-10.1); CREATININE 0.9 mg/dL (0.6-1.0); POTASSIUM 3.8 mmol/L (3.5-5.1)
[2020-09-06 07:45] VITALS: BP 132/58
[2020-09-06 14:54] VITALS: BP 120/59
--- NOTE | 2020-09-06 15:12 | NUR ---
ON-GOING ASSESSMENT: CM REVIEWED CHART AND SPOKE WITH ATTENDING. PLANS ARE FOR POSSIBLE DISCHARGE HOME TOMORROW WITH HOME HEALTH/IV INFUSION. CM SPOKE WITH PATIENT WELL DPOA/SISTER STEPH. SHE IS AGREEABLE WITH PLAN AND HAS NO PREFERENCE OF INFUSION COMPANY. CM SENT REFERRAL TO [facility] P:[phone] AND SPOKE WITH RASHAD WHO REPORTS THEY RAN HER BENEFITS AND SHE WILL HAVE NO COST AND IS FULLY COVERED. PLANS FOR VANCOMYCIN 750MG Q DAILY. CM DISCUSSED THIS WITH DPOA/STEPH AND PATIENT AND ALSO NOTIFIED SHIRLEY [phone] PTS NIECE WHO WILL BE THE ONE STAYING WITH PATIENT AND PROVIDING CARE. SHIRLEY STATES SHE LIVES VERY CLOSE TO THE HOSPITAL AND IS AVAILABLE FOR BEDSIDE TEACHING TOMORROW AT ANY TIME. CM SPOKE WITH RASHAD AT [facility] TO NOTIFY HER AND PROVIDE CONTACT INFORMATION WELL ADDRESS PT WILL BE STAYING AT AT D/C. [facility] DELIVERED A WALKER TO PATIENTS ROOM TODAY. CM ALSO FA[facility]ED SCRIPT FOR [facility]ZE TO [facility] AND LEFT VM. PT IS CONTINUING TO RECEIVE TF TODAY BUT CM WILL CONTINUE TO MONITOR IF SHE WILL NEED AT DISCHARGE OR NOT. [facility] CONTINUES TO FOLLOW PT AND CM NOTIFIED THEM OF POSSIBLE DISCHARGE TOMORROW WITH IV ANBX. POSSIBLE PICC LINE PLACEMENT TODAY.
--- NOTE | 2020-09-06 17:06 | PATH ---
[facility] [address] [place] [address] PATHOLOGY RPT PROCEDURE Name: FRANCISCO MONZON Room #: 444-P ADM IN M.R.#: [id number] Admission: 09/01/20 Date of : 54 Discharge: Report #: [id number] Path Case #: [id number] [facility] Accession Number: [id number] . 01 Material submitted: . femur - RIGHT FEMUR. Modifiers: right . 01 Clinical history: . WOUND DEHISCENCE RIGHT THIGH . FEMUR PROTRUDING FROM KNEE AMPUTATION WOUND . 02 Diagnosis: Tissue designated as "right femur", revision of amputation: - Fragments of skin and subcutaneous tissue with ulceration as well as gangrenous necrosis and dystrophic calcification. - No bone present for examination. (IUV:parts salesman; 09/06/2020) MBR 09/06/2020 1111 Local . 02 Electronically signed: . Geri Cobian MD, Pathologist NPI- [id number] . 01 Gross description: . The specimen is received in formalin, labeled "Francisco Monzon, right femur". Received is a segment of bone measuring 4.8 x 3.6 x 3.5 cm in greatest dimensions. One margin is transected in appearance and appears grossly unremarkable. The opposite margin is jagged in appearance with a slight amount of attached dusky corbin-romero skin, as well as overlying focally crusted tissue. Mobile Application Tester sections of soft tissue from the non-transected margin are submitted in cassette A1. (CAA; 09/04/2020) QAC/QAC 09/04/2020 1310 Local . 02 Pathologist provided ICD-10: L97.919, I96 . 02 CPT . 547226 Specimen Comment: A courtesy copy of this report has been sent to [phone] Specimen Comment: Report sent to Performed at: [address], [place] [id number] MD Daniel Dumas MD Phone: [phone] Performed at: 02 [place] [address] PATHOLOGY RPT PROCEDURE Name: FRANCISCO MONZON Room #: 444-P ADM IN M.R.#: [id number] Admission: 09/01/20 Date of : 54 Discharge: Report #: [id number] Path Case #: [id number] [facility] [address] [id number] MD Geri Cobian MD Phone: [phone]
[2020-09-06 19:07] VITALS: BP 118/58
--- NOTE | 2020-09-06 19:28 | NUR ---
A #4F SINGLE LUMEN PICC WAS PLACED PER POLICY. THE PATIENT REQUIRED FAMILY AT BEDSIDE FOR PLACEMENT SHE WAS NON COMPLIANT. THE LINE WAS TRIMMED TO 40CM AND ADVANCED WITHOUT DIFFICULTY. THE PATIENT REMOVED THE CONFIRMATION DEVICE SO A STAT CHEST XRAY WAS ORDERED FOR CONFIRMEATION. THE RADIOLOGIST RECOMENDED THE LINE REPOSITIONED 6CM. THE LINE WAS REPOSITIONED AND RELEASED FOR USE
--- NOTE | 2020-09-06 20:33 | NUR ---
ASSUMED PT CARE AROPUND 0730. PT ALERTX ORIENTED TO SELF. ON ROOM AIR. QX 2 TURN, SOMETIMES REFUSES TO TURN. ON CONTINUOUS TUBE FEEDING AT A RATE OF 45ML/HR.IV LEFT FA. PICC LINE SINGLE LUMEN RT UA. PT NIECE WAS IN THE ROOM TODAY NOON. JORDAN CATHETER IN PLACE. BS CHECK Q6HRS. FALL PRECAUTION IN PLACE. WILL CONTINUE TO MONITOR.
--- NOTE | 2020-09-07 03:05 | NUR ---
PER REPORT,PT HAD A BM IMMEDIATELY BEFORE SHIFT CHANGE,STOOL NOT COLLECTED YET.PT CONT ON JEVITY 1.5 @45 WITH WATER FLUSHES,MAURICIO WELL.PT REPOSITIONING SELF IN BED TO HER COMFORT.DRSG TO HER R STUMP REINFORCED,NO DRAINAGE NOTED.PT SLEEPING ON HER BED AT THIS TIME.POSSIBLE DISCHARGE TODAY.CALL LIGHT WITHIN REACH.
[2020-09-07 05:04] VITALS: BP 122/50
[2020-09-07 05:54] LABS: ALBUMIN 2.3 g/dL (3.4-5.0); CALCIUM 8.4 mg/dL (8.5-10.1); CREATININE 0.7 mg/dL (0.6-1.0); MAGNESIUM 1.7 mg/dL (1.8-2.4); PHOSPHORUS 3.2 mg/dL (2.6-4.7); POTASSIUM 4.2 mmol/L (3.5-5.1); TOTAL BILIRUBIN 0.2 mg/dL (0.2-1.0); TOTAL PROTEIN 6.7 g/dL (6.4-8.2)
[2020-09-07 06:11] LABS: ABSOLUTE NEUTROPHILS 5.4 thou/uL (1.4-8.2); BASOPHILS 1.4 % (0.0-2.0); EOSINOPHILS 2.7 % (0.0-3.0); HEMOGLOBIN 7.4 gm/dL (12.0-15.0); LYMPHOCYTES 19.9 % (24.0-44.0); MCH 26.5 pg (26.0-34.0); MCHC 32.3 g/dL (28.0-37.0); MONOCYTES 8.7 % (1.0-8.0); PLATELET COUNT 398 thou/uL (150-400); POLYS 67.3 % (36.0-66.0); RDW 17.6 % (10.5-14.5)
[2020-09-07 08:00] VITALS: BP 127/63
--- NOTE | 2020-09-07 13:16 | NUR ---
ON-GOING ASSESSMENT: CM REVIEWED CHART AND SPOKE WITH ATTENDING. PTS HEMOGLOBIN HAS DROPPED FROM YESTERDAY AND WILL CONTINUE TO MONITOR. PT ALSO REMAINS ON TUBE FEEDS. CM SPOKE WITH CAMRON/STEPH TO UPDATE AND SHE STATES SHE DOES NOT FEEL PT WILL REQUIRE TF AT DISCHARGE AND EATS FINE FOR THEM. CM DISCUSSED THAT SHE REMAINS ON THEM HERE IN THE HOSPITAL. PTS CHRISTEN WAS ALREADY DELIVERED TO HER HOME AND HER WHEELCHAIR FOR HOME IS IN HERE ROOM. MARISELA ALSO NOTIFIED ADAN AND SPOKE WITH RASHAD WHO REPORTS SHE WILL CHECK IN IN THE MORNING TO SEE IF SHE SHOULD DO THE HOME IV INFUSION TEACHING THEN WITH PATIENTS NADIR WATSON. MARISELA CONTACTED JARRELL TO UPDATE. CM ALSO NOTIFIED [facility] . CM WILL CONTINUE TO FOLLOW TO ASSIST NEEDED.
--- NOTE | 2020-09-07 15:16 | NUR ---
Nutrition: Received call from CM requesting bolus TF recs for possible D/C. Noted diet just advanced per ST but pt refusing most oral intake. Jevity 1.5 at 45 mL/hr equates to 4.5 cans/cartons Jevity 1.5 per day via bolus. Continue 200 mL H20 flush q 6 hrs and Keenan BID.
[2020-09-07 16:38] VITALS: BP 124/48
--- NOTE | 2020-09-07 19:38 | NUR ---
ASSUMED PT CARE AT 7AM.PT IN BED SLEEPING ON AND OFF.REPOSITIONED Q2H FOR COMFORT.PT PREFERED TO LIE ON RIGHT SIDE OF THE BED RAILS AT ALLTIMES. ASSESSMENT COMPLETED.VSS.ASSISTED PT WITH FEEDING BUT PT HAS POOR APPETITE. JEVITY INFUSING PER PEF TUBE WITH WATER FLUSHES Q6H.DR RAI HERE,ORDER NOTED. DTR HERE LATER THIS EVENING TO VISIT.UPDATES GIVEN.DRSG CHANGE DONE TO RT STUMP ORDERED.PT HAS BM LATER TTHIS EVENING.COMPLETE BED CHANGE AND PERICARE DONE.FALL BUNDLE IN PLACE.REPORT OFF TO NOC RN.
[2020-09-07 20:35] VITALS: BP 127/54
--- NOTE | 2020-09-08 02:05 | NUR ---
ASSESSED AT START OF SHIFT. PT RESTING IN BED A&O3 CONFUSED. PEGTUBE INTACT AND JEVITY INFUSING @45ML/HR. RT STUMP DRESSING CHANGED. HYDROCODONE GIVEN FOR PAIN. PT PREFERS TO LAY ON HER RIGHT SIDE. REPOSITIONED FOR COMFORT. FALL PREC IN PLACE. Q6 WATER FLUSHES PROVIDED WILL CONT TO MONITOR.
[2020-09-08 06:14] LABS: HEMATOCRIT 23.4 % (37.0-47.0); HEMOGLOBIN 7.6 gm/dL (12.0-15.0); MCH 26.6 pg (26.0-34.0); MCHC 32.4 g/dL (28.0-37.0); RBC 2.85 mil/uL (4.20-5.00); RDW 17.7 % (10.5-14.5); WBC 9.4 thou/uL (4.0-11.0)
[2020-09-08 06:40] LABS: CALCIUM 8.5 mg/dL (8.5-10.1); CREATININE 0.6 mg/dL (0.6-1.0); POTASSIUM 4.5 mmol/L (3.5-5.1)
[2020-09-08 07:35] VITALS: BP 129/54
[2020-09-08 14:52] VITALS: BP 129/54
[2020-09-08 15:11] VITALS: BP 129/54
--- NOTE | 2020-09-08 16:07 | NUR ---
on-going assessment: marisela reviewed CHART AND SPOKE WITH ATTENDING WHO REPORTS PT IS MEDICALLY STABLE TO D/C HOME TODAY. FAMILY CONTINUES TO REFUSE GOING BACK TO SNF AND WANT HER TO RETURN HOME WHERE SHE WILL BE LIVING IN A HANDICAP ACCESSIBLE HOME WITH HER NIECE SHIRLEY. (ADDRESS OF HOME AND CONTACT FOR SHIRLEY WAS PREVIOUSLY LISTED). MARISELA SPOKE WITH STEPH CAMRON WHO IS AGREEABLE WITH DISCHARGE PLAN. PLANS ARE FOR PATIENT TO DISCHARGE HOME ON HOME IV ANBX THROUGH [facility]. EN FROM [facility] MET WITH SHIRLEY TO DO A BEDSIDE EDUCATION AT 1500. PAUL REPORTS SHE IS COMFORTABLE WITH HOME IV ANBX. [facility] AND WILL SUPPLY. THEY ARE AWARE OF PATIENTS ADDRESS. MARISELA ALSO NOTIFIED [facility] AND FAXED FORM TO FRANCHESKA AT [facility] REGARDING HOME JEVITY TUBE FEEDS AND RECOMMENDATIONS. SHE STATES THAT PATIENTS JEVITY WILL BE DELIVERED OVERNIGHT. MARISELA ALSO NOTIFIED [facility] OF DISCHARGE TODAY AND LEAVING WITH HOME IV ANBX. CM FAXED D/C PAPERWORK TO [facility] AND CONFIRMED THEY RECEIVED ORDERS. PT IS NEEDING TRANSPORTATION HOME. MARISELA WITH APPROVAL FROM CM DIRECTOR APPROVED TRANSPORTATION HOME VIA WHEELCHAIR VAN THROUGH [employer] [facility] [phone]. (PATIENT HAS HER OWN WHEELCHAIR WITH CUSHION AND TRANSFER BOARD THAT SHE CAN TRANSPORT IN AT THE BEDSIDE THAT WAS DELIVERED BY [employer] AND [employer] WAS NOTIFIED). PT ALSO ALREADY HAD TRAPEZE DELIVERED TO THE HOME. NIECE/DPOA STEPH REPORT NO FURTHER NEEDS AT DISCHARGE.
--- NOTE | 2020-09-08 16:54 | NUR ---
Assumed pt care this am. Pt is awake and confused at times. Pt has IV site on L wrist saline locked, R UA PICC line and PEG tube. Pt has tube feeding jevity @45ml//hr. Pt has grande on. Pt on room air. Pt refused to get acchucheck at 12 noon. Did wound dressing x2 on R knee due to pt removing wound dressing. Pt niece at the bed side. Discharge teaching provided to pt niece and pt. Pt on the bed, bed on the lowest position, side rails up, call light within reach. Pt will be discharge today.
--- NOTE | 2020-09-10 08:23 | O ---
[facility] [place] [address] OPERATIVE REPORT Name: FRANCISCO MONZON Room #: 444-P [facility] IN M.R.#: [id number] Admission: 09/01/20 Attend Phys: Joselito Townsend MD Discharge: 09/08/20 Date of : 54 Report #: [id number] THIS REPORT FOR: cc: Sanjay Sahni MD, Christopher B. MD Kneidel,Carlos Alberto Wilson MD ~ DATE OF SERVICE: 09/02/2020 PREOPERATIVE DIAGNOSIS: Right femur zxzfu-wos-xgio amputation wound dehiscence. POSTOPERATIVE DIAGNOSIS: Right femur fjiki-hvk-szoi amputation wound dehiscence. PROCEDURE: Right revision euubb-tpp-ejiv amputation. SURGEON: Dr. Carlos Alberto Perez. MECHATRONICS TECHNICIAN: Tavia Norman. ANESTHESIA: General. ESTIMATED BLOOD LOSS: 50 mL. DRAINS: One Hemovac drain was placed. COMPLICATIONS: There were no complications. DESCRIPTION OF PROCEDURE: The patient brought to the operating room where she was placed under general anesthesia. Once under adequate general anesthesia, her right lower extremity was prepped and draped in a sterile manner. The patient's wound was ellipsed about the protruding distal femur. This was approximately a 5 cm wound. This was then retracted proximally with retractors and subsequently the femur was transected approximately 6 cm proximal to its previous transection thereby allowing adequate wound closure without any compression distally and without any pressure on the distal femur. The distal femur was bevelled and with an oscillating saw as well. Cultures had been taken from the distal femur resection piece of bone. The wound was then irrigated copiously and closed over a medium Hemovac drain with 0 Vicryl in the deep fascia, 2-0 Vicryl in subcutaneous tissues and esteban were used for the skin. The wound was dressed with Xeroform, 4 x 4s, and a sterile soft compressive dressing was placed. There were no complications from the procedure. The [address] [address] OPERATIVE REPORT Name: MONZONFRANCISCO Room #: 444-P [facility] IN ..#: [id number] Admission: 09/01/20 Attend Phys: Joselito Townsend MD Discharge: 09/08/20 Date of : 54 Report #: [id number] patient tolerated the procedure well and went to the recovery room without incident. <ELECTRONICALLY SIGNED> By: Carlos Alberto Perez MD 09/10/20 0823 0922 0932 Carlos Alberto Perez MD /nt
== END 2020-09-08 18:01 | disposition home health service (06) | DRG 498 ==
LOC: ER 12:06 → 4S 16:44 → EROBS 16:44 → 4S 16:47
PROVIDERS: Emergency Medicine; Hospitalist; Internal Medicine; Nurse Practitioner; ADMIT Hospitalist; ATTEND Hospitalist
PROC: 0QBB0ZZ Excision of Right Lower Femur, Open Approach (ICD-10-PCS; principal; 2020-09-02)
DX: T87.81 Dehiscence of amputation stump (principal); G93.41 Metabolic encephalopathy; E43 Unspecified severe protein-calorie malnutrition; Z68.1 Body mass index [BMI] 19.9 or less, adult; Z89.611 Acquired absence of right leg above knee; M19.90 Unspecified osteoarthritis, unspecified site; I10 Essential (primary) hypertension; I73.9 Peripheral vascular disease, unspecified; D50.9 Iron deficiency anemia, unspecified; D47.3 Essential (hemorrhagic) thrombocythemia; Y83.8 Other surgical procedures as the cause of abnormal reaction of the patient, or of later complication, without mention of misadventure at the time of the procedure; G54.7 Phantom limb syndrome without pain; R53.81 Other malaise; R13.10 Dysphagia, unspecified; D63.8 Anemia in other chronic diseases classified elsewhere; I48.0 Paroxysmal atrial fibrillation; Z20.822 Contact with and (suspected) exposure to COVID-19; F32.9 Major depressive disorder, single episode, unspecified; R63.4 Abnormal weight loss; S90.32XA Contusion of left foot, initial encounter; Z09 Encounter for follow-up examination after completed treatment for conditions other than malignant neoplasm; Z88.8 Allergy status to other drugs, medicaments and biological substances; Z87.891 Personal history of nicotine dependence; Z86.16 Personal history of COVID-19; X58.XXXA Exposure to other specified factors, initial encounter; Y93.89 Activity, other specified; Y92.89 Other specified places as the place of occurrence of the external cause; Y99.8 Other external cause status
CPT/HCPCS: 10195; 27000; 50010; 50101; 50386; 51412; 53000; 56524; 56525; 57091; 62110; 62900; 70005

== ENCOUNTER 2020-09-12 19:29 | Emergency (ER) | payer OTHER ==
[~2020-09-12] VITALS: Ht 121.9 cm; Wt 40.8 kg
[~2020-09-12 19:29] MED LIST changes: +ENOXAPARIN30 MG/0.3 SUBQ; +LOSARTAN POTAS100 MG PO; +PREVACID30 MG PO; +PROBIOTIC1 EAC1 PO
[2020-09-12] MEDS ORDERED: VANCOMYCIN750 MG/152 IV (19:42)
[2020-09-12] MEDS ORDERED: HYDROCODON-ACE1 EAC7 PO (23:15)
[2020-09-12 23:19] VITALS: BP 140/97
[2020-09-13] MEDS ORDERED: ASA81BEC PO (15:12)
[2020-09-13] MEDS ORDERED: HYDROCODON-ACE1 EAC7 PO (15:12)
[2020-09-13] MEDS ORDERED: LOSARTAN POTAS100 MG PO (15:12)
[2020-09-13] MEDS ORDERED: NORCO5 PO (15:12)
[2020-09-13] MEDS ORDERED: PROBIOTIC1 EAC1 PO (15:12)
[2020-09-13] MEDS ORDERED: PREVACID30 MG PO (15:12)
[2020-09-13] MEDS ORDERED: PLAVIX 75 MG TA75 MG PO (15:12)
[2020-09-13] MEDS ORDERED: FLONASE 0.05%50 MCG NASAL (15:12)
[2020-09-13] MEDS ORDERED: NEURONTIN100 MG PO (15:12)
== END 2020-09-12 23:19 | disposition home or self-care (01) ==
LOC: ER 19:29
DX: M25.551 Pain in right hip (principal); I10 Essential (primary) hypertension; I48.91 Unspecified atrial fibrillation; Z79.82 Long term (current) use of aspirin; Z79.01 Long term (current) use of anticoagulants; Z79.899 Other long term (current) drug therapy; Z87.891 Personal history of nicotine dependence; Z88.8 Allergy status to other drugs, medicaments and biological substances

== ENCOUNTER 2020-10-04 22:59 | Emergency (ER) | payer OTHER ==
[~2020-10-04] VITALS: Ht 76.2 cm; Wt 36.3 kg
--- NOTE | ~2020-10-04 | EMS ---
[place] [address] EMS Patient Care Report Name: FRANCISCO MONZON Room #: REG RAMILA Francisco#: [id number] Admission: 10/04/20 Attend Phys: Discharge: Date of : 54 Report #: [id number] THIS REPORT FOR: //name// Report Transmitted: 10/05/2020 00:31 EMS Care Summary [place], [place]/[facility] Incident [phone] @ 10/04/2020 22:27 Incident Location [address] [place] [address] Patient FRANCISCO MONZON Female, 70 Years 1950 Patient Address [address] [place] [address] Patient History Dementia,Hypertension (HTN),Amputee,Atrial Fibrillation,Anemia,Hypokalemia,Cellulitis, Patient Allergies Tramadol, Patient Medications Gabapentin, Clopidogrel, Hydrocodone, Acetaminophen, Chief Complaint ALTERED MENTAL STATUS/SLURRED SPEECH Disposition Transported No Lights/Enterprise Dispatch Reason Convulsions/Seizure Transported To [facility] Narrative DISPATCHED TO A SEIZURE. ARRIVED ON SCENE TO BE LED TO PATIENT LYING SUPINE IN HOSPITAL BED IN THE BACK BEDROOM BEING ASSESSED BY FIRE CREW. FAMILY STATED THAT PATIENT HAS HAD MORE THAN NORMAL SLURRED SPEECH AND [place] [address] EMS Patient Care Report Name: FRANCISCO MONZON Room #: REG RAMILA Francisco#: [id number] Admission: 10/04/20 Attend Phys: Discharge: Date of : 54 Report #: [id number] SAID SHE HAS A HISTORY OF BILATERAL LEG AMPUTATION DUE TO INFECTION WHICH CAUSED HER TO HAVE MENTAL DEFICITS. SHE SAID THAT THE PATIENT IS NORMALLY CONFUSED WITH SLURRED SPEECH AND DEMENTIA BUT TODAY IT SEEMS WORSE. SHE ALSO SAID THAT THE PATIENT WAS RECENTLY TREATED FOR A UTI. FAMILY DENIED CONVULSIONS BUT THEY SAID PATIENT HAD A BREIF PERIOD OF "BLANKNESS." PATIENT WAS UNABLE TO ANSWER QUESTIONS BUT FOLLOW [facility] AND ANSWERED TO HER NAME. PATIENT DID NOT HAVE FACIAL DROOP OR UNILATERAL WEAKNESS. SHE WAS MOVED TO A MEGANEVER AND CARRIED TO THE COT, COVERED WITH A BLANKET, SECURED WITH STRAPS, AND MOVED TO THE AMBULANCE. HER VITALS WERE OBTAINED. PATIENT WAS TRANSPORTED TO THE HOSPITAL WITH VITALS MONITORED. UPON ARRIVAL AT THE HOSPITAL PATIENT WAS MOVED TO ED ROOM 6 ON THE COT AND LIFTED OVER TO THE HOSPITAL BED. PATIENT CARE WAS TURNED OVER TO ED NURSING STAFF. Initial Vitals @22:49P: 118,BP: 170/69,SpO2: 68, @22:52P: 70,R: 16,BP: 137/97,Pain: 0/10,GCS: 14,SpO2: 94,Revised Trauma: 12, @22:42P: 65,R: 16,BP: 144/65,Pain: 0/10,GCS: 14,Glucose: 101,SpO2: 95,Revised Trauma: 12, Assessments @22:35MENTAL:Confused,Other,SKIN:Hot,HEENT:Head/Face: No Abnormalities,Neck/Airway: No Abnormalities,LUNG SOUNDS:General: No Abnormalities,Left Upper: No Abnormalities,Right Upper: No Abnormalities,Left Lower: No Abnormalities,Right Lower: No Abnormalities,ABDOMEN:General: No Abnormalities,Left Upper: No Abnormalities,Right Upper: No Abnormalities,Left Lower: No Abnormalities,Right Lower: No Abnormalities,PELVIS//GI:No Abnormalities,EXTREMITIES:Left Arm: Weakness,Right Arm: Weakness,Right Leg: Other,Left Leg: Other,Capillary Refill: Right Upper: < 2 Sec,PULSE:Radial: 2+ Normal,NEURO:Weakness Right-Sided,Slurred Speech,Weakness Left-Sided, Impression Altered Mental Status Procedures @22:35ALS AssessmentResponse: UnchangedSucceeded Timeline 22:24,Call Received 22:24,Dispatch Notified 22:27,Dispatched 22:28,En Route 22:33,On Scene 22:35,At Patient 22:35,ALS Assessment,Response: UnchangedSucceeded, 22:42,BP: 144/65 M,PULSE: 65,RR: 16 R,SPO2: 95 Ox,ETCO2: ,B,PAIN: 0,GCS: 14, [facility] [address] [place] [address] EMS Patient Care Report Name: FRANCISCO MONZON Room #: REG RAMILA Francisco#: [id number] Admission: 10/04/20 Attend Phys: Discharge: Date of : 54 Report #: [id number] 22:47,Depart Scene 22:49,BP: 170/69 M,PULSE: 118,RR: R,SPO2: 68 Ox,ETCO2: ,BG: ,PAIN: ,GCS: , 22:52,BP: 137/97 M,PULSE: 70,RR: 16 R,SPO2: 94 Ox,ETCO2: ,BG: ,PAIN: 0,GCS: 14, 22:55,At Destination 23:07,Call Closed Disclaimer v1.1 Copyright 2020 [employer] This EMS Care Summary contains data elements from the applicable legal record (which may be displayed differently). It is designed to provide pertinent information for the following purposes: continuity of care, clinical quality, and state data reporting. The complete legal record is available to ED staff and administrators of the receiving hospital in [employer]'s Patient Tracker. All data is provided "as is."
[~2020-10-04 22:59] MED LIST changes: +HYDROCODON-ACE1 EAC7 PO; +NORCO5 PO; +VANCOMYCIN750 MG/152 IV
[2020-10-04 23:28] LABS: URINE BILIRUBIN NEGATIVE (Negative); URINE BLOOD NEGATIVE (Negative); URINE CLARITY CLEAR; URINE COLOR YELLOW; URINE GLUCOSE-RANDOM* NEGATIVE (Negative); URINE KETONES NEGATIVE (Negative); URINE LEUKOCYTES-REFLEX NEGATIVE (Negative); URINE NITRITE-REFLEX NEGATIVE (Negative); URINE PROTEIN (DIPSTICK) TRACE (Negative); URINE SPECIFIC GRAVITY 1.015 (1.005-1.035); URINE UROBILINOGEN 0.2 E.U./dl (0.2-1.0)
[2020-10-04 23:56] LABS: ABSOLUTE NEUTROPHILS 6.5 thou/uL (1.4-8.2); BASOPHILS 0.9 % (0.0-2.0); EOSINOPHILS 1.5 % (0.0-3.0); HEMOGLOBIN 8.2 gm/dL (12.0-15.0); LYMPHOCYTES 16.7 % (24.0-44.0); MCH 25.9 pg (26.0-34.0); MCHC 32.7 g/dL (28.0-37.0); MCV 79.3 fL (80.0-100.0); MONOCYTES 7.5 % (1.0-8.0); PLATELET COUNT 483 thou/uL (150-400); POLYS 73.4 % (36.0-66.0); RBC 3.15 mil/uL (4.20-5.00); RDW 18.2 % (10.5-14.5); WBC 8.9 thou/uL (4.0-11.0)
[2020-10-04 23:58] LABS: ANION GAP 11 mmol/L (7-16); BUN 32 mg/dL (7-18); CALCIUM 8.6 mg/dL (8.5-10.1); CHLORIDE 100 mmol/L (98-107); CO2 25 mmol/L (21-32); CREATININE 1.7 mg/dL (0.6-1.0); GLUCOSE 101 mg/dL (74-106); POTASSIUM 4.9 mmol/L (3.5-5.1); SODIUM 136 mmol/L (136-145)
[2020-10-05 00:02] LABS: APTT 24.4 Seconds (24.5-32.8); INR 0.98; PROTIME 10.7 Seconds (9.3-11.4)
[2020-10-05 00:08] LABS: ALBUMIN 2.7 g/dL (3.4-5.0); SGOT 16 U/L (15-37); SGPT 18 U/L (30-65); TOTAL BILIRUBIN 0.2 mg/dL (0.2-1.0); TOTAL PROTEIN 7.8 g/dL (6.4-8.2); TROPONIN-I <0.06 ng/mL (<0.06)
[2020-10-05 02:25] VITALS: BP 101/46
--- NOTE | 2020-10-05 07:10 | EKG ---
[place] [address] [employer] [place] [address] ELECTROCARDIOGRAM REPORT Name: FRANCISCO MONZON [id number] Admission: 10/04/20 Attend Phys: Discharge: 10/05/20 Date of : 54 Report #: [id number] [facility] ED Test Date: 2020-10-05 Test Time: 00:03:50 Pat Name: FRANCISCO MONZON Department: Room: Gender: F [employer] Mechanical Specialist: BRITTNEY : 1950 Requested By: Juvenal Ro Order Number: [id number] MD: Joshua Godinez Measurements Intervals [place] Rate: 81 P: 0 TX: 152 QRS: 50 QRSD: 111 T: 42 QT: 394 QTc: 458 Interpretive Statements Sinus rhythm Low voltage, extremity leads Artifact in lead(s) I,II,III,aVR,aVL,aVF,V1,V2 Compared to ECG 09/02/2020 11:27:02 No significant changes Electronically Signed On 10-05-2020 7:10:37 CDT by Joshua Godinez [email or web address] <ELECTRONICALLY SIGNED> By: Joshua Godinez MD, [facility] 10/05/20 0710 0003 [id number] Joshua Godinez MD, FAC /EPI
== END 2020-10-05 02:26 | disposition short-term general hospital (02) ==
LOC: ER 22:59
PROVIDERS: Emergency Medicine
DX: G93.0 Cerebral cysts (principal); Z20.822 Contact with and (suspected) exposure to COVID-19; R41.82 Altered mental status, unspecified; M19.90 Unspecified osteoarthritis, unspecified site; I48.91 Unspecified atrial fibrillation; Z87.891 Personal history of nicotine dependence; Z88.6 Allergy status to analgesic agent